=== PATIENT | female | born 1965 | race Two or more races ===

== ENCOUNTER 2020-09-29 08:03 | Outpatient (REF) | payer MEDICAID, SELFPAY ==
--- NOTE | ~2020-09-29 | MM_ITS ---
EXAMINATION: MM SCREENING DIGITAL BREAST TOMOSYNTHESIS, BILATERAL CLINICAL INFORMATION: Screening. Asymptomatic. The lifetime risk of breast cancer based on the Tyrer-Cuzick Model is 6%. COMPARISON: Mammography: 04/16/2018, 08/03/2015, outside exam 07/13/2014 ([place]). TECHNIQUE: Digital breast tomosynthesis is performed in both the craniocaudal and mediolateral oblique views along with computer-aided detection (CAD). Synthesized 2D images are generated from the tomosynthesis. FINDINGS: There are scattered areas of fibroglandular density (ACR BI-RADS breast composition Category b). There are no significant masses, abnormal calcifications, or other abnormalities. Parenchymal pattern is similar to prior exams. No developing density. Skin contours are smooth. No significant changes. MM/MM tomosynthesis screening BI IMPRESSION: No mammographic evidence of malignancy. ASSESSMENT: BI-RADS 1: Negative RECOMMENDATION: Routine annual mammography screening. This patient's information was entered into a reminder system with a target due date for their next mammogram.
== END 2020-09-29 08:04 | disposition home or self-care (01) ==
LOC: HO.MAMMO 08:03
PROVIDERS: PCP Internal Medicine; Visit Provider Internal Medicine
DX: Z12.31 Encounter for screening mammogram for malignant neoplasm of breast (principal)
CPT/HCPCS: 77063; 77067

== ENCOUNTER 2020-12-12 11:42 | Outpatient (REF) | payer MEDICAID, SELFPAY ==
[2020-12-14 16:11] LABS: Transglutaminase Ab IgG <1.0 U/mL; Transglutaminase IgA <1.0 U/mL
== END 2020-12-12 11:43 | disposition home or self-care (01) ==
LOC: HO.LAB 11:42
PROVIDERS: PCP Internal Medicine; Referring Provider Internal Medicine; Visit Provider Nurse Practitioner Family
DX: R10.11 Right upper quadrant pain (principal); R14.0 Abdominal distension (gaseous); K59.04 Chronic idiopathic constipation; K21.9 Gastro-esophageal reflux disease without esophagitis
CPT/HCPCS: 36415; 83516; 99202

== ENCOUNTER 2020-12-13 10:07 | Outpatient (REF) | payer MEDICAID, SELFPAY | END 2020-12-13 10:08 | disposition home or self-care (01) | LOC: HO.LNP 10:07 | PROVIDERS: Visit Provider Nurse Practitioner Family | DX: K21.9 Gastro-esophageal reflux disease without esophagitis (principal) | CPT/HCPCS: 87338 ==

== ENCOUNTER → 2021-01-15 11:46 | Outpatient (BNVA) | payer MEDICAID, SELFPAY | PROVIDERS: PCP Internal Medicine; Referring Provider Internal Medicine; Visit Provider Nurse Practitioner Family | DX: K21.9 Gastro-esophageal reflux disease without esophagitis (principal); K59.04 Chronic idiopathic constipation; K58.1 Irritable bowel syndrome with constipation; R14.0 Abdominal distension (gaseous); R10.9 Unspecified abdominal pain | CPT/HCPCS: 99212 ==

== ENCOUNTER 2021-01-16 08:19 | Outpatient (REF) | payer MEDICAID, SELFPAY ==
[2021-01-16 09:09] LABS: Alanine Aminotransferase 48 U/L (0-31); Albumin Level 4.1 g/dL (3.5-5.0); Alkaline Phosphatase 84 U/L (39-117); Anion Gap 11 (12-20); Aspartate Amino Transferase 29 U/L (5-31); Bilirubin Total 0.4 mg/dL (0.0-1.0); Blood Urea Nitrogen 15 mg/dL (9-16); Calcium 9.6 mg/dL (8.4-10.2); Carbon Dioxide 28 mmol/L (22-29); Chloride 103 mmol/L (96-108); Estimated Glomerular Filt Rate > 60; Glucose Random 102 mg/dL (60-115); Lipase 20 U/L (8-78); Potassium 3.5 mmol/L (3.3-5.1); Sodium 138 mmol/L (135-145); Total Protein 7.1 g/dL (6.5-8.0)
== END 2021-01-16 08:20 | disposition home or self-care (01) ==
LOC: HO.LAB 08:19
PROVIDERS: Visit Provider Nurse Practitioner Family
DX: R19.7 Diarrhea, unspecified (principal)
CPT/HCPCS: 36415; 80053; 83690

== ENCOUNTER 2021-02-23 07:34 | Outpatient (REF) | payer MEDICAID, SELFPAY | END 2021-02-23 07:35 | disposition home or self-care (01) | LOC: HO.HOSX 07:34 | PROVIDERS: Visit Provider Physician Assistant | DX: Z13.89 Encounter for screening for other disorder (principal) ==

== ENCOUNTER 2021-04-16 07:32 | Day surgery (SDC) | payer MEDICAID, SELFPAY ==
[2021-04-10 09:41] VITALS: BMI 32.9
--- NOTE | 2021-04-13 09:04 | P.CONAN_ITS ---
Documented by User: Erika Fu NP 04/13/21 09:06 HPI - Anesthesia Eval Consult details Narrative: 56yo F for Upper Endoscopy [facility] Past Medical History Medical History GERD (gastroesophageal reflux disease) HTN (hypertension) Family History Family History Mother Diabetes Father HTN (hypertension) Surgical History Surgical History History of back surgery History of esophagogastroduodenoscopy (EGD) Hx of breast reduction, elective Hx of colonoscopy Social History Social History Patient Tobacco Use Status: Never used Tobacco Are you DNR?: No Advance Directives: No Advance Directives Information Provided: Yes Advance Directives on File: No Patient : No (post [place]) Meds Allergies Allergy/AdvReac Type Severity Reaction Status Date / Time Penicillins AdvReac Throat Verified 04/10/21 09:41 swelling, facial swelling Home Medications Medication Instructions Recorded Confirmed Last Taken Type losartan 100 1 tab PO DAILY 12/12/20 04/10/21 Unknown History mg-hydrochlorothiazide 25 mg tablet Exam Exam Date and Time: April 13, 2021 0904 Height,Weight and Vital Signs: Height 5 ft 2 in Weight 81.647 kg Pertinent Lab Results Pertinent Lab Results: Laboratory Tests 01/16/21 08:27 Sodium 138 Potassium 3.5 Chloride 103 Carbon Dioxide 28 BUN 15 Creatinine 0.73 Assessment and Plan Assessment Anesthesia Assessment: Chart Reviewed Documented by User: Shayna Winchester MD 04/16/21 08:04 [facility] Past Medical History Medical History GERD (gastroesophageal reflux disease) HTN (hypertension) Family History Family History Mother Diabetes Father HTN (hypertension) Surgical History Surgical History History of back surgery History of esophagogastroduodenoscopy (EGD) Hx of breast reduction, elective Hx of colonoscopy History of Problems with Anesthesia: No Social History Social History Patient Tobacco Use Status: Never used Tobacco Are you DNR?: No Advance Directives: No Advance Directives Information Provided: Yes Advance Directives on File: No Patient : No (post [place]) Meds Allergies Allergy/AdvReac Type Severity Reaction Status Date / Time Penicillins AdvReac Throat Verified 04/10/21 09:41 swelling, facial swelling Home Medications Medication Instructions Recorded Confirmed Last Taken Type losartan 100 1 tab PO DAILY 12/12/20 04/10/21 Unknown History mg-hydrochlorothiazide 25 mg tablet Exam Airway Mallampati Class: II TM Dist: >3cm Neck ROM: Full Loose/Missing/Broken Teeth: No Heart: RRR Lungs: CTA Assessment and Plan Assessment Anesthesia Assessment: Anesthesia Plan Discussed Final Anesthetic Review History of Problems with Anesthesia: No NPO: Yes ASA Class: II Final Preanesthetic Review: Meds/Allgs Chart Reviewed and Consent Obtained/Reviewed Patient Risk: Low Procedure Risk: Intermediate Anesthetic Plan Anesthetic Plan: MAC: Disposition: Standard PACU
[2021-04-16 07:48] VITALS: BP 132/61; PULSE 74; RESP 16; TEMP 36.3; O2SAT 96
[2021-04-16] MEDS: Lactated Ringers 1,000 ML 100 ML IVCONT (07:56)
--- NOTE | 2021-04-16 08:02 | MHC.SHP ---
Pre-Procedural Eval Section A Date of Service: 04/16/21 The patient is an INPATIENT: No The History & Physical has been completed within 30 days and I have reviewed it.: No Section B Chief Complaint: reflux disease Details of Present Illness: GERD, abdominal bloating Relevant Family History (Specify if Yes): No Relevant Social History: None Present Medications: see Short Stay Collaborative assessment Medical History: Significant History (GERD, HYPERTENSION) History of Previous Operations: Relevant previous surgery/procedure and date(s) (History of back surgery Hx of breast reduction, elective Hx of colonoscopy) Allergies: Allergies Allergy/AdvReac Type Severity Reaction Status Date / Time Penicillins AdvReac Throat Verified 04/10/21 09:41 swelling, facial swelling Review of Systems Sugical H&P ROS: Negative: Cardiovascular and Respiratory and Yes, Specify: Constitution (obese) and Gastrointestinal (GERD, abdominal bloating) Exam Surgical H&P Exam: Normal: Heart, Normal: Lungs, Normal: Extremities and Normal: Abdomen Plan Diagnosis/Plan: Unchanged I have reviewed the history and physical and performed a pertinent physical examination on my patient. No changes have occurred unless specified.
--- NOTE | 2021-04-16 08:04 | P.OP_ITS ---
Operative Note Operative Note Date of Service: 04/16/21 Narrative: Pre-op diagnosis: GERD, abdominal bloating Post-op diagnosis:?other (GERD, gastritis) Procedure: FLEXIBLE TRANSORAL UPPER GASTROINTESTINAL ENDOSCOPY WITH BIOPSIES Consent:?Indications for the procedure and potential complications of bleeding, perforation, reaction to medications and missed diagnosis were discussed with the patient and informed consent was obtained. Instrument:?Olympus GIF H 190 mid size upper endoscope Monitoring: Vital signs and clinical assessment, continuous EKG monitoring, Pulse oximetry, Carbon Dioxide monitoring and blood pressure monitoring were done throughout the procedure. Procedure:?The patient was placed in the left lateral decubitis position and pre-procedure medications were administered and a bite block was placed. The endoscope was inserted into the mouth and advanced under direct vision to the third part of duodenum. A careful inspection was made as the upper endoscope was withdrawn including a retroflexed examination of the proximal stomach; Findings and interventions are described below. Findings: Larynx:? Normal Esophagus: GE junction at 36 cms. No esophagitis or Contreras's. Stomach: Mild gastric erythema. Biopsies were obtained. Grade 2 flap valve on retroflexed examination of the cardia. Duodenum: Normal bulb and descending duodenum. Biopsies were obtained from 3rd part of the duodenum to check for celiac sprue Intervention: Biopsies as noted above Impression and Post Procedure Diagnosis: Endoscopy Findings: STOMACH: Mild antral gastritis DUODENUM: Normal - biopsied to check for celiac sprue Plan: Await pathology results Patient has an appointment on 05/01/21 in the GI Clinic with ? Jennifer Medina FNP-BC . Above findings were reviewed with the patient and GERD handout was given in the discharge area Surgeon: Flash Alexander MD Anesthesia:?MAC (Dr Winchester) Was an Voting Machine Mechanic used for this Procedure?:?No Voting Machine Mechanic:?Noa Kumar Estimated blood loss (mL):?0 Pathology:?other (A. small bowel bxs, R/O celiac? B. gastric antrum, R/O H. pylori) Condition:?stable Disposition:?PACU
[2021-04-16 08:48] VITALS: BP 103/45; PULSE 71; RESP 20; TEMP 36.2; O2SAT 98
[2021-04-16 09:05] VITALS: BP 119/63; PULSE 71; RESP 18; TEMP 36.2; O2SAT 96
== END 2021-04-16 09:34 ==
LOC: HO.SSS 07:32
PROVIDERS: PCP Internal Medicine; Visit Provider Internal Medicine Gastroenterology
PROC: 0DJ08ZZ Inspection of Upper Intestinal Tract, Via Natural or Artificial Opening Endoscopic (ICD-10-PCS; CPT 43235; principal; 2021-04-16 08:30)
DX: K21.9 Gastro-esophageal reflux disease without esophagitis (principal); K29.50 Unspecified chronic gastritis without bleeding; K58.1 Irritable bowel syndrome with constipation; I10 Essential (primary) hypertension; Z79.899 Other long term (current) drug therapy; Z88.0 Allergy status to penicillin
CPT/HCPCS: 43239; 88305; 88342

== ENCOUNTER 2021-05-01 09:05 | Outpatient (REF) | payer MEDICAID, SELFPAY ==
[2021-05-01 12:09] LABS: Alanine Aminotransferase 48 U/L (0-31); Alkaline Phosphatase 92 U/L (39-117); Anion Gap 12 (12-20); Aspartate Amino Transferase 33 U/L (5-31); Bilirubin Total 0.4 mg/dL (0.0-1.0); Blood Urea Nitrogen 15 mg/dL (9-16); Calcium 9.8 mg/dL (8.4-10.2); Carbon Dioxide 28 mmol/L (22-29); Chloride 101 mmol/L (96-108); Estimated Glomerular Filt Rate > 60; Glucose Random 95 mg/dL (60-115); Lipase 19 U/L (8-78); Potassium 3.7 mmol/L (3.3-5.1); Sodium 137 mmol/L (135-145); Total Protein 7.2 g/dL (6.5-8.0)
[2021-05-01 12:31] LABS: TSH reflex Free T4 0.77 uIU/mL (0.32-4.0)
[2021-05-01 12:34] LABS: Folate 10.7 ng/mL (> or = 4.0); Vitamin B12 482 pg/mL (200-900)
[2021-05-05 14:07] LABS: Vitamin D 25-OH, D2 <4 ng/mL; Vitamin D 25-OH, D3 30 ng/mL; Vitamin D 25-OH, Total 30 ng/mL (30-100)
== END 2021-05-01 09:06 | disposition home or self-care (01) ==
LOC: HO.LAB 09:05
PROVIDERS: PCP Internal Medicine; Referring Provider Internal Medicine; Visit Provider Nurse Practitioner Family
DX: R10.10 Upper abdominal pain, unspecified (principal); K59.04 Chronic idiopathic constipation; K21.9 Gastro-esophageal reflux disease without esophagitis; K58.1 Irritable bowel syndrome with constipation; R14.0 Abdominal distension (gaseous); R19.7 Diarrhea, unspecified; E55.9 Vitamin D deficiency, unspecified
CPT/HCPCS: 36415; 80053; 82306; 82607; 82746; 83690; 84443; 99212

== ENCOUNTER 2021-10-11 09:12 | Outpatient (REF) | payer MEDICAID, SELFPAY ==
--- NOTE | ~2021-10-11 | MM_ITS ---
EXAMINATION: MM SCREENING DIGITAL BREAST TOMOSYNTHESIS, BILATERAL CLINICAL INFORMATION: Screening. Asymptomatic. The lifetime risk of breast cancer based on the Tyrer-Cuzick Model is 6%. COMPARISON: Mammography: 09/29/2020 and studies dating back to 07/13/2014. TECHNIQUE: Digital breast tomosynthesis is performed in both the craniocaudal and mediolateral oblique views along with computer-aided detection (CAD). Synthesized 2D images are generated from the tomosynthesis. FINDINGS: The breasts are heterogeneously dense, which may obscure small masses (ACR BI-RADS breast composition Category c). There is a stable parenchymal pattern of the right breast. Within the central aspect of the left breast, there are some indeterminate calcifications which on one view may represent calcifications around a fibroadenoma. However, on the other image this appearance is not present. Recommend spot magnification views in 90 degree mediolateral view and craniocaudal views. MM/MM tomosynthesis screening BI IMPRESSION: Probably benign calcification but which recommend spot magnification views for better evaluation. ASSESSMENT: BI-RADS 0: Incomplete - Need Additional Imaging Evaluation RECOMMENDATION: 1. Additional views of the left breast. 2. Targeted ultrasound if warranted after review of the additional views. 3. Radiology department staff will contact the patient for additional imaging.
== END 2021-10-11 09:13 | disposition home or self-care (01) ==
LOC: HO.MAMMO 09:12
PROVIDERS: PCP Internal Medicine; Visit Provider Internal Medicine
DX: Z12.31 Encounter for screening mammogram for malignant neoplasm of breast (principal)
CPT/HCPCS: 77063; 77067

== ENCOUNTER 2021-10-16 09:03 | Outpatient (REF) | payer MEDICAID, SELFPAY ==
--- NOTE | ~2021-10-16 | MM_ITS ---
EXAMINATION: MM DIAGNOSTIC DIGITAL MAMMOGRAPHY, LEFT CLINICAL INFORMATION: Recall from screening for calcifications central left breast. Prior history reduction mammoplasty approximately 9 years ago. TC score 6%. COMPARISON: Mammography: 10/11/2021, 09/29/2020, 04/16/2018 TECHNIQUE: Digital mammography is performed in the following views: Magnification CC, magnification ML FINDINGS: The breasts are heterogeneously dense, which may obscure small masses (ACR BI-RADS breast composition Category c). Additional views demonstrate tightly grouped relatively coarse calcifications. As noted on the screening exam, they are circumferential arranged on the CC view. They are probably benign and will be reassessed again in 6 months. Results are discussed with the patient at time of visit. MM/MM added views LT IMPRESSION: Tightly grouped relatively coarse probable benign calcifications central left breast. ASSESSMENT: BI-RADS 3: Probably Benign RECOMMENDATION: Diagnostic left mammography in 6 months. This patient's information was entered into a reminder system with a target due date for their next mammogram.
== END 2021-10-16 09:04 | disposition home or self-care (01) ==
LOC: HO.MAMMO 09:03
PROVIDERS: PCP Internal Medicine; Visit Provider Internal Medicine
DX: R92.1 Mammographic calcification found on diagnostic imaging of breast (principal)
CPT/HCPCS: 77065

== ENCOUNTER 2022-05-15 12:58 | Outpatient (REF) | payer MEDICAID, SELFPAY ==
--- NOTE | ~2022-05-15 | MM_ITS ---
EXAMINATION: MM DIAGNOSTIC DIGITAL BREAST TOMOSYNTHESIS, LEFT CLINICAL INFORMATION: Six-month followup left breast calcifications. COMPARISON: Mammography: 10/16/2021 and studies dating back to 07/11/2014. TECHNIQUE: Digital breast tomosynthesis is performed in both the craniocaudal and mediolateral oblique views along with computer-aided detection (CAD). Synthesized 2D images are generated from the tomosynthesis. Additional spot magnification views in craniocaudal and 90-degree mediolateral views performed. FINDINGS: The breasts are heterogeneously dense, which may obscure small masses (ACR BI-RADS breast composition Category c). There are no new significant masses, abnormal calcifications, or other abnormalities. The left breast calcifications about the central aspect appear stable. Recommend 6-month followup bilateral mammography with magnification views of the left breast. Results are provided to the patient at time of visit by the technologist. MM/MM tomosynthesis diagnostic LT IMPRESSION: There are no significant changes from prior study. ASSESSMENT: BI-RADS 3: Probably benign. RECOMMENDATION: Diagnostic mammography in 6 months. This patient's information was entered into a reminder system with a target due date for their next mammogram.
== END 2022-05-15 12:59 | disposition home or self-care (01) ==
LOC: HO.MAMMO 12:58
PROVIDERS: PCP Internal Medicine; Visit Provider Internal Medicine
DX: R92.1 Mammographic calcification found on diagnostic imaging of breast (principal)
CPT/HCPCS: 77061; 77065

== ENCOUNTER → 2022-11-15 09:52 | Outpatient (BNVA) | payer MEDICAID, SELFPAY | PROVIDERS: PCP Internal Medicine; Visit Provider Physician Assistant Surgical ==

== ENCOUNTER 2022-11-28 09:38 | Outpatient (AMB) | payer MEDICAID, SELFPAY ==
[2022-11-28 09:50] VITALS: BP 150/79; PULSE 78; TEMP 36.1; O2SAT 96; BMI 35.9
--- NOTE | 2022-11-28 09:50 | MHC.OFFVISWM ---
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 She heard about our program from a friend. Her goal is to lose weight and achieve a healthy lifestyle as well as to improve, if not resolve, obesity related medical conditions, including htn. She reports first being concerned about her weight about a year ago given increase in back pain, highest weight to date was 220. Current weight is 209.2 pounds with a BMI of 35.9. She has tried multiple methods of weight loss including fad diets and exercise without permanent results. She lives with her grandson. She does not work. She wakes at:?5 am, and goes to bed at?9 pm. Dinner is at 3 pm and then again at 6 pm. Breakfast: oatmeal or pancakes or eggs, or DD Bagel twist AM snack: toast Lunch: cereal (cinnamon toast crunch w 1 % milk) PM snack: fruit Dinner: rice beans pork, pasta, soup After dinner: crackers Other snacks: donuts, crackers Liquids: 64-80 oz water, no soda, no juice, 3 hot tea per day Alcohol/marijuana/tobacco intake: none Exercise: can join [facility] GERD score: 18 KEERTHI score: 0 ESS score: 4 QOL score: 118 [facility] Medical History HTN (hypertension) GERD (gastroesophageal reflux disease) Surgical History History of esophagogastroduodenoscopy (EGD) Hx of breast reduction, elective History of back surgery Hx of colonoscopy Family History Mother Diabetes Father HTN (hypertension) Daughter No problems noted. Daughter No problems noted. Social History Alcohol intake: never Patient Tobacco Use Status: Never used Tobacco Review of Systems Const All systems reviewed & are unremarkable except as noted in HPI and below Physical Exam Vital Signs: Last Vital Signs Temp 97.0 F 11/28/22 09:50 Pulse 78 11/28/22 09:50 BP 150/79 H 11/28/22 09:50 Pulse Ox 96 11/28/22 09:50 Oxygen Delivery Method Room Air 11/28/22 09:50 BMI result Body Mass Index 35.9 Const General: cooperative, healthy appearing and no acute distress Orientation/consciousness: patient oriented x3 HEENT Head: Yes normal to inspection Ears: hearing grossly normal bilaterally General nose exam: Normal external nose present Face and sinus: Yes normal facial exam Eyes General: appearance normal, both eyes and all related structures Resp Effort & Inspection: normal respiratory effort Auscultation: clear to auscultation bilaterally Cardio Rate: regular rate Rhythm: regular rhythm Heart sounds: S1 normal heart sound present and S2 normal heart sound present GI Inspection: Yes normal to inspection, No distended and Yes obesity Palpation (GI): Soft to palpation, nontender and no guarding Auscultation: normal bowel sounds Skin General skin exam: no rashes or lesions noted Neuro General: patient oriented x3 Extrem General: Yes edema (trace BLE) Psych Appearance: grossly normal Mental Status: mental status grossly normal Speech and movement: Normal speech and movement present Affect: normal affect Attitude: cooperative Assessment & Plan Assessment & Plan (1) Obesity (BMI 30-39.9): Code(s): E66.9 - Obesity, unspecified Plan: This is a?57 yo female who will start our SW program to prepare for bariatric surgery.? Blood work, h pylori , CXR, ECG, Abd US and UGI have been ordered. She is being scheduled for RD and BH initial consultations. She will start SWL classes and watch the first three videos before her next appointment. ? Adequate sleep of 7-8 hours per night discussed, awakening at 5 am and going to bed around 9 pm ? Purchase body composition analyzer scale (William taylor or Agueda recommended) and check weight weekly. The best time to do this is first thing in the morning after going to the bathroom. 1. Nutritional counseling: Be sure to careful read the number of scoops per shake Start with 2 Celebrate Rebuild shakes ([facility] [employer], [employer], [employer]) First shake (1 scoop in 10 oz low fat unsweetened almond milk) at 6am-8am Second shake (1 and 1/2 scoops in 12 oz low fat unsweetened almond milk) 9am-11pm Meal at 1-2pm (7 forks of protein and 7 forks of salad/vegetables). Meal to include lean meat (beef, fish, pork, turkey, chicken), cooked vegetables or a salad with olive oil and/or fruits (berries, pears, apples, kiwi). Avoid salt, breads, potatoes, rice, pasta, desserts. 2 protein bars ([employer] bars at [facility] [employer], [employer], [employer]) at 3pm-5pm. Another bar at 6pm-8pm. Try to drink 64 oz of water daily and avoid soda and juices. ?2. Each shake would be drunk slowly, like coffee in a period of 2 hours. ?3. Cut each bar in 4 pieces and eat each piece in 30 min ?to make each bar last 2 hours. ?4. I emphasized the importance of measuring accurately the food portion and measure it carefully when serving the food on the plate ?5. The meal portions include 7 full-size forks of meat and 7 full-size forks of salad. You always eat the meat portion but you can replace up to half of the forks of salad/vegetables with rice, potatoes or pasta, or a fruit ?if you like. The less you do it the better weight loss will be. ?6. One full-size fork is what can be scooped on the fork without falling aside and not what can be bit with the fork. Use regular forks like those you find in a typical restaurant. ?7.? Please send me weight measurements as soon as possible and then once a week. Always include your diet and exercise plan. Alternatively come weekly at the office for weight checks and send me the measurements. ?8. Exercise counseling: Begin by watching a stretching for beginners video. Start slowly and begin to stretch your muscles. You should do this before and after each exercise session to prevent injury. Please join [facility] gym near your home. Ask the retail property manager or one of the trainers how to use the machines if you are unfamiliar with them. Start elliptical with a resistance of 0. Increase resistance by 1 every 3 min to your most comfortable resistance with a max resistance of 6. Reduce the resistance by 1 every 3 minutes back down to 0 and repeat cycles for 300 calories. Alternatively, start treadmill with a speed of 2.5 and incline of 0, increasing incline by 1 every 3 minutes to the highest comfortable level (max 4 for now) then decrease in the same fashion. Repeat process to a goal of 300 calories. Goal of 2000 calories burned or more weekly. You may also consider use of the stationary bike. The easiest would be to chose the fat-burn or interval training program on the machine and do this until you reach the 300 calorie goal. Alternatively, you can manually adjust the resistance in a similar fashion as mentioned above, (resistance of 2-8 with a goal speed of 12 mph). Tracking calories is essential. 9. Alternatively start walking outside daily, tracking calories with a goal of 300 calories per day, daily. You can download the pooja Fanvibe which can track your time, distance and calories while walking outside. You press start in the pooja when you start and then stop when you are finished. 10.? It is important to avoid for at least 18 months postoperatively and it has been discussed at the information session 11. Please get labs, EKG and chest X-Ray within 1 week. 12. Discussed and answered all questions regarding?obtained consent to participate in the [facility]?Registry. 13. Please follow the diet plan exactly, without any change. If you do not like something about the plan or you feel hungry, you need to communicate with me so I can help you revise the plan. You should not change the plan yourself. Text me at [phone] 14. Goal is to lose at least 12 pounds in the first month 15. Goal is to lose 10% of your weight before surgery, which is about 20 lbs. Ultimate weight goal: 189 lbs before surgery Patient is morbidly obese and is not considered stable at this time.?I spent a total of 70 minutes reviewing/updating records, examining the patient and counseling the patient on weight management as detailed above. Orders: Orders Lipid Panel Today E66.9 - Obesity, unspecified, I10 - Essential (primary) hypertension Complete Blood Count Auto Diff Today E66.9 - Obesity, unspecified, I10 - Essential (primary) hypertension Comprehensive Met. Panel Today E66.9 - Obesity, unspecified, I10 - Essential (primary) hypertension Vitamin B1 Today E66.9 - Obesity, unspecified, I10 - Essential (primary) hypertension Vitamin A Today E66.9 - Obesity, unspecified, I10 - Essential (primary) hypertension TSH reflex Free T4 Today E66.9 - Obesity, unspecified, I10 - Essential (primary) hypertension H Pylori Breath Test Today E66.9 - Obesity, unspecified, I10 - Essential (primary) hypertension Vitamin D 25-OH Total Today E66.9 - Obesity, unspecified, I10 - Essential (primary) hypertension Hemoglobin A1c Today E66.9 - Obesity, unspecified, I10 - Essential (primary) hypertension US abdomen comp w elastography Today E66.9 - Obesity, unspecified, I10 - Essential (primary) hypertension ECG 12 lead EKG Today E66.9 - Obesity, unspecified, I10 - Essential (primary) hypertension FL upper GI w air Today E66.9 - Obesity, unspecified, I10 - Essential (primary) hypertension Insulin Today E66.9 - Obesity, unspecified, I10 - Essential (primary) hypertension IRON PROFILE Today E66.9 - Obesity, unspecified, I10 - Essential (primary) hypertension Vitamin B12 and Folate Today E66.9 - Obesity, unspecified, I10 - Essential (primary) hypertension Zinc Today E66.9 - Obesity, unspecified, I10 - Essential (primary) hypertension C Reactive Protein Today E66.9 - Obesity, unspecified, I10 - Essential (primary) hypertension Ferritin Today E66.9 - Obesity, unspecified, I10 - Essential (primary) hypertension PTHI Today E66.9 - Obesity, unspecified, I10 - Essential (primary) hypertension XR chest 2V Today E66.9 - Obesity, unspecified, I10 - Essential (primary) hypertension Referrals Behavioral Health Referral E66.9 - Obesity, unspecified, I10 - Essential (primary) hypertension Nutrition/Dietitian Referral E66.9 - Obesity, unspecified, I10 - Essential (primary) hypertension Coding Level of Care Code New Pt Level 5 (19784) Diagnoses Obesity (BMI 30-39.9) E66.9 Time Spent (min) 70
== END 2022-11-28 11:06 | disposition home or self-care (01) ==
PROVIDERS: PCP Internal Medicine; Visit Provider Physician Assistant Surgical
DX: E66.9 Obesity, unspecified (principal); Z68.35 Body mass index [BMI] 35.0-35.9, adult
CPT/HCPCS: 99205

== ENCOUNTER → 2022-11-28 09:38 | Outpatient (BNVA) | payer MEDICAID, SELFPAY | PROVIDERS: PCP Internal Medicine; Visit Provider Physician Assistant Surgical | DX: E66.9 Obesity, unspecified (principal); Z68.35 Body mass index [BMI] 35.0-35.9, adult; I10 Essential (primary) hypertension | CPT/HCPCS: 99212 ==

== ENCOUNTER 2022-12-11 09:49 | Outpatient (REF) | payer MEDICAID, SELFPAY ==
--- NOTE | ~2022-12-11 | XR_ITS ---
EXAMINATION: XR CHEST 2 VIEWS CLINICAL INFORMATION: Cough. COMPARISON: None. TECHNIQUE: Frontal and lateral views of the chest were obtained. FINDINGS: The heart, great vessels, pulmonary vasculature and mediastinum are normal. The lungs show no focal infiltrate, effusion or pneumothorax. There is no acute osseous abnormality. There is multi-level mild thoracic spondylosis. XR/XR chest 2V IMPRESSION: No active cardiopulmonary disease.
--- NOTE | 2022-12-11 09:53 | ECG_ITS ---
Test Reason : OBESITY Blood Pressure : / mmHG Vent. Rate : 079 BPM Atrial Rate : 079 BPM P-R Int : 174 ms QRS Dur : 072 ms QT Int : 360 ms P-R-T Axes : 069 029 043 degrees QTc Int : 412 ms Normal sinus rhythm Normal ECG No previous ECGs available Referred By: José Manuel Almodovar Electronically Signed By:NATHALY THRASHER MD
[2022-12-11 10:16] LABS: MANUAL DIFF FLAG NO
[2022-12-11 10:40] LABS: Basophils Percent Auto 0.5 % (0-2); Eosinophils Absolute Auto 0.2 X10*3/uL (0.0-0.4); Eosinophils Percent Auto 2.2 % (0-4); Hematocrit 42.4 % (37.0-47.0); Hemoglobin 13.4 g/dl (12.0-16.0); Imm Gran Abs Auto 0.03 X10*3/uL (0.00-0.03); Imm Gran Pct Auto 0.4 % (0.0-0.4); Lymphocytes Absolute Auto 2.7 X10*3/uL (1.2-4.9); Lymphocytes Percent Auto 35.6 % (20-40); Mean Corpuscular HGB Conc 31.6 g/dl (31.0-35.0); Mean Corpuscular Hemoglobin 26.8 pg (27.0-33.0); Mean Corpuscular Volume 84.8 fL (80.0-98.0); Mean Platelet Volume 12.3 fL (9.4-12.3); Monocytes Absolute Auto 0.7 X10*3/uL (0.1-1.2); Monocytes Percent Auto 9.4 % (2-11); Neutrophils Absolute Auto 3.9 x10*3/uL (2.0-8.3); Neutrophils Percent Auto 51.9 % (45-73); Platelet Count 209 X10*3/uL (160-400); Red Cell Distribution Width 13.2 % (11.0-16.0); White Blood Count 7.6 X10*3/uL (4.8-10.8)
[2022-12-11 10:53] LABS: Estimated Average Glucose 108 mg/dL; Hemoglobin A1c % 5.4 % (<6.0)
[2022-12-11 11:19] LABS: Alanine Aminotransferase 66 U/L (0-31); Alkaline Phosphatase 76 U/L (39-117); Anion Gap 14 (12-20); Aspartate Amino Transferase 43 U/L (5-31); Bilirubin Total 0.5 mg/dL (0.0-1.0); Blood Urea Nitrogen 15 mg/dL (9-16); C Reactive Protein 2.61 mg/dL (< or = 0.50); Calcium 9.8 mg/dL (8.4-10.2); Carbon Dioxide 28 mmol/L (22-29); Chloride 101 mmol/L (96-108); Cholesterol 150 mg/dL (<200); Estimated Glomerular Filt Rate > 60; Glucose Random 100 mg/dL (60-115); HDL Cholesterol 40 mg/dL (>40); Iron 79 mcg/dL (30-160); LDL Cholesterol Calculated 90 mg/dL (<100); Percent Iron Saturation 24 % (15-50); Potassium 3.5 mmol/L (3.3-5.1); Sodium 139 mmol/L (135-145); Total Iron Binding Capacity 334 mcg/dL (228-428); Total Protein 7.2 g/dL (6.5-8.0); Triglycerides 104 mg/dL (<150); Unsaturated Iron Binding 255 ug/dL
[2022-12-11 11:39] LABS: Ferritin 126 ng/mL (10-250); Insulin 23 uU/mL (2-29); Vitamin D 25-OH Total 56.4 ng/mL (>30)
[2022-12-11 11:49] LABS: Folate 16.4 ng/mL (> or = 4.0); Vitamin B12 973 pg/mL (200-900)
[2022-12-12 14:39] LABS: Calcium (PTHI) 9.4 mg/dL (8.6-10.4); PTHI 42 pg/mL (16-77)
[2022-12-14 01:54] LABS: Zinc 62 mcg/dL (60-130)
[2022-12-15 14:14] LABS: Vitamin B1 34 nmol/L (8-30)
[2022-12-17 15:03] LABS: Vitamin A 33 mcg/dL (38-98)
== END 2022-12-11 09:50 | disposition home or self-care (01) ==
LOC: HO.XRAY 09:49
PROVIDERS: PCP Internal Medicine; Visit Provider Physician Assistant Surgical
DX: E66.9 Obesity, unspecified (principal); I10 Essential (primary) hypertension; R05.9 Cough, unspecified
CPT/HCPCS: 36415; 71046; 80053; 80061; 82306; 82607; 82728; 82746; 83036; 83525; 83540; 83970; 84425; 84443; 84590; 84630; 85025; 86140; 93005

== ENCOUNTER 2022-12-26 11:00 | Outpatient (AMB) | payer OTHER, SELFPAY ==
--- NOTE | 2022-12-26 11:08 | A.OFFWM_ITS ---
Intake Intake Visit Reasons: VIDEO Intake Allergies Penicillins Adverse Reaction (Verified 11/28/22 10:06) Throat swelling, facial swelling PFSH Medical History HTN (hypertension) GERD (gastroesophageal reflux disease) Surgical History History of esophagogastroduodenoscopy (EGD) Hx of breast reduction, elective History of back surgery Hx of colonoscopy Family History Mother Diabetes Father HTN (hypertension) Daughter No problems noted. Daughter No problems noted. Social History Alcohol intake: never Patient Tobacco Use Status: Never used Tobacco Behavioral Health Assessment Weight Management Therapy Therapy Notes Details PT is a 57 year old female, who presents for assessment as part of [facility] program. PT currently attends counseling on a monthly basis and sees prescriber every 3 months. States she's diagnosed with depression and anxiety, also shared that her anxiety is related to pain illness. Pt denies any safety concern and/or any history/current issue with self-harm/other-harm. PHQ-9 scores indicate possible active Sx of depression, BES scores suggest lower risk for binge eating but, pt shared concerns with stress-eating. We will meet again to finish part of the assessment, to monitor adjustment to program expectations and provide strategies for stress-eating. Presenting Concerns Referral Source WMP Provider Reason for referral Completion of behavioral health assessment as part of process for weight-loss surgery. Precipitating Event Obesity. Living Situation Current Living Situation Rent At risk of losing current housing? No Satisfied with current living situation? Yes Comments Pt lives with 12 y/o grandson. Food/Weight/Diet Expectations of change Goal is to lose 10% of her weight before surgery, which is about 20 lbs. Ultimate weight goal: 189 Lbs before surgery. PT wants to achieve a healthy weight. History/Relationship with food PT reports she likes bread, tends to skip meals and/or not have formal meals then she was eating and picking here and there. PT reports challenges with stress eating, and having a hard time calming her cravings. She feels the need to put something on her mouth when craving sweets. . Example of meals before starting program Breakfast: @7:30am Oatmeal, sandwich, or a fast breakfast from [employer]. Lunch: @12pm. [place], cereal/milk. PM snack: chips, donuts, anything available. Meal at @3pm and then another meal at @6pm, but not a formal dinner. It was something quick. History/Relationship with weight Always been overweight. in past 5 years lowest weight has been 200Lbs, highest weight 217Lbs. PT reports she notices more challenges losing weight after she moved and was walking less. Social History Family history and relationship Pt is . She has 2 adult daughters (34 and 33 y/o). Has 6 grandchildren. Both parents are . Has 5 siblings. Pt reports good family relationships. 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 Developmental history and status None reported. Social support Daughters, siblings, niece. Community support Providers. Yazidi/Spirituality [employer]. Cultural/Ethnic information [place]. Pt lives in the [facility] [place] years ago. Been in [place] for about 24 years. Legal Involvement and History Current or historical involvement with the legal system? None reported Education Highest grade completed 9th grade. Preferred learning style Learn by doing and Visual Currently enrolled in educational program? No Interested in further educational program? No Educational Interests/Skills Plants, care of others. Employment Employment Status Unemployed Wants help to find employment? No Meaningful activities shopping, cleaning, plants, family activities, be at her home. Financial Situation Describe current financial situation Comfortable Financial assistance? [place], TAFDC ([place] for grandson.) and Disability (for herself.) Service Service? No Mental Health and Addiction Treatment Current/Past substance abuse? No Current/Past addictive behavior concerns? No Psychiatric history PT attends counseling at [facility] on a monthly basis, sees prescriber every 3 months. Therapist: Loi Roche. Psychiatrist: Dr. Hawkins. She is diagnosed with Depression, anxiety, emotional issues due to pain. Current medication: Prozac 20mg, Melatonin 10mg 1 at bedtime as needed. PT was in crisis over 15 years ago after having anxiety attacks. Pt denies any safety concern and/or any history/current issue with se;f-harm/other-harm. Medical and Physical Health Summary Additional Medical History not covered in history None reported Sexual History concerns None reported Physical exam in the last year? Yes Pain Screening Current pain? Yes Pain in the last few months? Yes Comments Back pain and shoulder pain due to arthritis and tendonitis. Medications Is the patient compliant with medications? Yes Does the patient have García Guardian in place? Not applicable Does the patient use complimentary health approaches? No Trauma/Abuse History History of trauma? No Questionnaires PHQ-9 Over the last 2 weeks, how often have you been bothered by any of the following problems? 1. Little interest or pleasure in doing things: several days 2. Feeling down, depressed, or hopeless: not at all 3. Trouble falling or staying asleep, or sleeping too much: more than half the days 4. Feeling tired or having little energy: several days 5. Poor appetite or overeating: more than half the days 6. Feeling bad about yourself - or that you are a failure or have let yourself or your family down: several days 7. Trouble concentrating on things, such as reading the newspaper or watching television: several days 8. Moving or speaking so slowly that other people could have noticed. Or the opposite - being so fidgety or restless that you have been moving around a lot more than usual: several days 9. Thoughts that you would be better off or of hurting yourself in some way: not at all Total score: 9 Depression Screening Interpretation: Positive Depression Screening Follow-up: Existing condition and Other (Repeat next visit.) Depression Screening Done: Yes 45807 - PHQ-9 Billing: Yes Source: Developed by Drs. Baljit Sivla, Elena Boyd, Yuriy Ace and colleagues, with an educational shy from [employer]. Binge Eating Scale Group 1 A. I don't feel self-conscious about my wt. or body size when I'm with others. B. I feel concerned about how I look to others, but it normally does not make me fell disappointed with myself C. I do get self-conscious about my appearance and wt. which makes me feel disappointed in myself. D. I feel very self-conscious about my wt. and frequently I feel intense shame and disgust for myself. I try to avoid social contacts because of my self- consciousness. Response Group 1: B Group 2 A. I don't have any difficulty eating slowly in the proper manner. B. Although I seem to gobble down foods, I don't end up feeling stuffed because of eating to much. C. At times, I tend to eat quickly and then, I feel uncomfortably full afterwards. D. I have the habit of bolting down my food, without really chewing it. When this happens I usually feel uncomfortably stuffed because I've eaten to much. Response Group 2: B Group 3 A. I feel capable to control my eating urges when I want to. B. I feel like I have failed to control my eating more than the average person. C. I feel utterly helpless when it comes to feeling in control of my eating urges. D. Because I feel so helpless about controlling my eating I have become very desperate about trying to get control. Response Group 3: A Group 4 A. I don't have the habit of eating when I'm bored. B. I sometimes eat when I'm bored, but often I'm able to get busy and get my mind off food. C. I have a regular habit of eating when I'm bored, but occasionally, I can use some other activity to get my mind off eating. D. I have a strong habit of eating when I'm bored. Nothing seems to help me breath the habit. Response Group 4: B Group 5 A. I'm usually physically hungry when I eat something. B. Occasionally, I eat something on impulse even though I really am not hungry. C. I have the regular habit of eating foods, that I might not really enjoy, to satisfy a hungry feeling even though physically, I don't need the food. D. Although I'm not physically hungry, I get a hungry feeling in my mouth that only seems to be satisfied when I eat a food, like sandwich, that fills my mouth. Sometimes, when I eat the food to satisfy my mouth hunger, I then spit the food out so I won't gain weight. Response Group 5: D Group 6 A. I don't feel any guilt or self-hate after I overeat. B. After I overeat, occasionally I feel guilt or self-hate. C. Almost all the time I experience strong guilt or self-hate after I overeat. Response Group 6: A Group 7 A. I don't lose total control of my eating when dieting even after periods when I overeat. B. Sometimes when I eat a forbidden food on a diet, I feel like I blew it and eat even more. C. Frequently, I have the habit of saying to myself, I've blown it now, why not go all the way, when I overeat on a diet. When that happens I eat more. D. I have a regular habit of starting a strict diets for myself but I break the diets by going on an eating binge. My life seems to be either a feast or famine. Response Group 7: B Group 8 A. I rarely eat so much food that I feel uncomfortably stuffed afterwards. B. Usually about once a month, I each such a quantity of food, I end up feeling very stuffed. C. I have regular periods during the month when I eat large amounts of food, either at mealtime or at snacks. D. I eat so much food that I regularly feel quite uncomfortable after eating and sometimes a bit nauseous. Response Group 8: B Group 9 A. My level of calorie intake does not go up very high or go down very low on a regular basis. B. Sometimes after I overeat, I will try to reduce my caloric intake to almost nothing to compensate for the excess calories I've eaten. C. I have a regular habit of overeating during the night. It seems that my routine is not to be hungry in the morning but overeat in the evening. D. In my adult years, I have had week-long periods where I practically starve myself. This follows periods when I overeat. It seems I live a life of either feast or famine. Response Group 9: B Group 10 A. I usually am able to stop eating when I want to. I know when enough is enough. B. Every so often, I experience a compulsion to eat which I can't seem to control. C. Frequently, I experience strong urges to eat which I seem unable to control, but at other times I can control my eating urges. D. I feel incapable of controlling urges to eat. I have a fear of not being able to stop eating voluntarily. Response Group 10: A Group 11 A. I don't have any problem stopping eating when I feel full. B. I usually can stop eating when I feel full but occasionally overeat leaving me feeling uncomfortably stuffed. C. I have a problem stopping eating once I start and usually I feel uncomfortably stuffed after I eat a meal. D. Because I have a problem not being able to stop eating when I want, I sometimes have to induce vomiting to relieve my stuffed feeling. Response Group 11: C Group 12 A. I seem to eat just as much when I'm with others, Family social gatherings as when I'm by myself. B. Sometimes, when I'm with other persons, I don't eat as much as I want to eat because I'm self-conscious about my eating. C. Frequently, I eat only a small amount of food when others are present, b ecause I'm very embarrassed about my eating. D. I feel so ashamed about overeating that I pick times to overeat when I know no one will see me. I feel like a closet eater. Response Group 12: B Group 13 A. I eat three meals a day with only an occasional between meal snack. B. I eat 3 meals a day, but I also normally snack between meals. C. When I am snacking heavily, I get in the habit of skipping regular meals. D. There are regular periods when I seem to be continually eating, with no planned meals. Response Group 13: C Group 14 A. I don't think much about trying to control unwanted eating urges. B. At least some of the time, I feel my thoughts are pre-occupied with trying to control my eating urges. C. I feel that frequently I spend much time thinking about how much I ate or about trying not to eat anymore. D. It seems to me that most of my waking hours are pre-occupied by thoughts about eating or not eating. I feel like I'm constantly struggling not to eat. Response Group 14: B Group 15 A. I don't think about food a great deal. B. I have strong craving for food but they last only for brief periods of time. C. I have days when I can't seem to think about anything else but food. D. Most of my days seem to be pre-occupied with thoughts about food. I feel like I live to eat. Response Group 15: D Group 16 A. I usually know whether or not I'm physically hungry. I take the right portion of food to satisfy me. B. Occasionally, I feel uncertain about knowing whether or not I'm physically hungry. A these times it's hard to know how much food I should take to satisfy me. C. Even though I might know how many calories I should eat, I don't have any idea what is a normal amount of food for me. Response Group 16: B Binge Eating Score: 19 Score less than 17 Minimal Risk Score between 18-26 Moderate Risk Score between 27-46 High Risk Assessment & Plan Assessment & Plan (1) Depression: Code(s): F32.A - Depression, unspecified Qualifiers: Depression Type: major depressive disorder Major depression episode severity: unspecified Major depression recurrence: recurrent (2) Eating disorder, unspecified: Code(s): F50.9 - Eating disorder, unspecified Qualifiers: Eating disorder type: unspecified eating disorder Qualified Code(s): F50.9 - Eating disorder, unspecified Plan PT not cleared today. PT will need support with habit building and emotional eating. Follow up on 01/27/2023 at 9:45am. -Advised client to communicate with provider her challenges with shakes and for support as she's not following meal plan as indicated. Telehealth Telehealth Location of provider rendering services: other Location of patient: address on file Patient Identification confirmed using: Name, : Yes Telehealth method: video Patient verbally consented to treatment: Yes Patient verbally consented to billing insurance company: Yes Patient informed of any privacy concerns related to visit: No Minutes spent on Phone/Video with Pt.: 60 Coding Level of Care Code New Pt Tele Psy Diag Eval (10388) Patient Type New Diagnoses Depression F32.A Depression Type: major depressive disorder Major depression episode severity: unspecified Major depression recurrence: recurrent Eating disorder, unspecified type F50.9 Eating disorder type: unspecified eating disorder Time Spent (min) 60
== END 2022-12-26 11:30 | disposition home or self-care (01) ==
LOC: HO.HBST 11:14
PROVIDERS: PCP Internal Medicine; Visit Provider Counselor Mental Health
DX: F33.1 Major depressive disorder, recurrent, moderate (principal); F50.9 Eating disorder, unspecified
CPT/HCPCS: 90837

== ENCOUNTER → 2022-12-26 11:00 | Outpatient (BNVA) | payer OTHER, MEDICAID, SELFPAY | PROVIDERS: PCP Internal Medicine; Visit Provider Counselor Mental Health ==

== ENCOUNTER 2023-02-20 11:19 | Outpatient (REF) | payer MEDICAID, SELFPAY | END 2023-02-20 11:20 | disposition home or self-care (01) | LOC: HO.MAMMO 11:19 | PROVIDERS: PCP Internal Medicine; Visit Provider Internal Medicine | DX: R92.1 Mammographic calcification found on diagnostic imaging of breast (principal); Z41.1 Encounter for cosmetic surgery | CPT/HCPCS: 77062; 77066 ==

== ENCOUNTER → 2023-02-20 11:30 | Outpatient (BNV) | payer MEDICAID, SELFPAY | PROVIDERS: PCP Internal Medicine; Visit Provider Radiology Diagnostic Radiology | DX: R92.1 Mammographic calcification found on diagnostic imaging of breast (principal) | CPT/HCPCS: 77062; 77066 ==

== ENCOUNTER 2024-04-16 10:40 | Outpatient (REF) | payer MEDICAID, SELFPAY ==
--- OUTSIDE RECORDS SUMMARY | 2024-04-16 12:13 | XMS_ITS | Encounter Summary ---
Author Organization [employer] Address [address] [facility] [address] [place] [address] Care Team Providers Care Dope Heater Name Role Phone Jewel Loredo MD Primary Care Prov ider Encounter Details Date Type Department Care Team (Latest Contact Info) Description 04/15/2024 Travel Social History Tobacco Use Types Packs/Day Years Used Date Smoking Tobacco: Never Smokeless Tobacco: Never Alcohol Use Standard Drinks/Week Comments Never 0 (1 standard drink = 0.6 oz pur e alcohol) Depression Answer Date Recorded Patient Health Questionnaire-9 Score 2 10/29/2023 Patient Health Questionnaire-9 Score 2 10/29/2023 Last PHQ-9: Questionnaire Data Not on file 0 10/29/2023 Housing Stability Answer Date Recorded What is your housing situation today? I have jerzy tobias 10/24/[address] you li ve. Do you have problems with any of the following? None of the above 10/24/2023 Food Insecurity Answer Date Recorded Within the past 12 months, y ou worried that your food would run out before you got money to buy more: Never True 10/24/2023 Within the past 12 months,th e food you bought just didn't last and you didn't have enough money to get more: Never True 07/2023 Transportation Answer Date Recorded In the past 12 months, has l ack of transportation kept you from medical appts, meetings, work or from getting things needed for daily living? No 10/24/2023 Utilities Answer Date Recorded In the past 12 months, has t he electric, gas, oil or water company threatened to shut off services in your home? No 10/24/2023 Depression Answer Date Recorded Patient Health Questionnaire-2 Score 2 10/29/2023 Internet Access Answer Date Recorded Internet Access Q1 Yes 10/24/2023 Internet Access Q2 Not on file 10/24/2023 Comments Unknown Sex and Gender Information Value Date Recorded Sex Assigned at Female 12/17/2021 10:29 AM EDT Legal Sex Female 10:29 AM EDT Gender Identity Female 12/17/2021 10:29 AM EDT Sexual Orientation Choose not to disclose 2021 10:29 AM EDT documented as of this encounter Plan of Treatment Upcoming Encounters Date Type Department Care Team (Late st Contact Info) Description 04/22/2024 10:15 AM EST Telemedicine [facility] [address] [place] [address] Jeewl Loredo MD [address] [place] [address] documented as of this encounter Visit Diagnoses Not on filedocumented in this encounter Additional Health Concerns Assessment Noted Time PHQ-9 Depression Total Score: 2 10/29/19 24 9:36 AM EDT documented as of this encounter Care Teams Dope Heater Relationship Specialty Start Date End Date Jewel Loredo MD [address] [place] [address] PCP - General Internal Medicine 07/13/19 documented as of this encounter
--- OUTSIDE RECORDS SUMMARY | 2024-04-16 12:13 | XMS_ITS | Encounter Summary ---
Author Organization [employer] Address [address] [place] [address] Care Team Providers Care Show Host Name Role Phone Jewel Loredo MD Primary Care Prov ider Encounter Details Date Type Department Care Team (Late st Contact Info) Description 05/30/2023 Orders Only [facility] MED[facility] [address] [place] [address] ProviderDenisha MD Social History Tobacco Use Types Packs/Day Years Used Date Smoking Tobacco: Never Smokeless Tobacco: Never Alcohol Use Standard Drinks/Week Comments Never 0 (1 standard drink = 0.6 oz pur e alcohol) Depression Answer Date Recorded Patient Health Questionnaire-9 Score 0 05/17/2022 Housing Stability Answer Date Recorded What is your housing situation today? I have jerzy tobias 12/02/[address] you li ve. Do you have problems with any of the following? None of the above 12/02/2022 Food Insecurity Answer Date Recorded Within the past 12 months, y ou worried that your food would run out before you got money to buy more: Never True 12/02/2022 Within the past 12 months,th e food you bought just didn't last and you didn't have enough money to get more: Never True Transportation Answer Date Recorded In the past 12 months, has l ack of transportation kept you from medical appts, meetings, work or from getting things needed for daily living? No 12/02/2022 Utilities Answer Date Recorded In the past 12 months, has t he electric, gas, oil or water company threatened to shut off services in your home? No 12/02/2022 Depression Answer Date Recorded Patient Health Questionnaire-2 Score 0 05/17/2022 Comments Unknown Sex and Gender Information Value [...] Info) Description 04/22/2024 10:15 AM EST Telemedicine [facility] [address] [place] [address] Jewel Loredo MD [address] [place] [address] documented as of this encounter Procedures Procedure Name Priority Date/Time Associated Diagnosis Comments HM COLONOSCOPY Routine 07/04/2015 3:56 PM EDT documented in this encounter Results * Hm Colonoscopy (07/04/2015 3:56 PM EDT) us Historical Provider HEALTH MAINTENANCE Final Result documented in this encounter Visit Diagnoses Not on filedocumented in this encounter Additional Health Concerns Assessment Noted Time PHQ-9 Depression Total Score: 0 05/18/19 23 9:56 AM EDT documented as of this encounter Care Teams Show Host Relationship Specialty Start Date End Date Jewel Loredo MD [address] [place] [address] PCP - General Internal Medicine 07/13/19 documented as of this encounter
--- OUTSIDE RECORDS SUMMARY | 2024-04-16 12:13 | XMS_ITS | Encounter Summary ---
Author Organization [employer] Address [address] [facility] [address] [place] [address] Care Team Providers Care Wet Process Miller Head Name Role Phone Jewel Loredo MD Primary Care Prov ider Reason for Visit * Reason Onset Date Comments Walk-In 04/15/2024 Encounter Details Date Type Department Care Team ([facility] st Contact Info) Description 04/15/2024 Telephone [facility]S [address] [place], [place] [id number] Jewel Loredo MD [address] [place] [address] Walk-In Social History Tobacco Use Types Packs/Day Years [...] AM EDT documented as of this encounter Miscellaneous Notes * Telephone Encounter - Yolanda Vazquez RN - 04/15/2024 10:06 AM EST Patient c/o back pain and hip pain x 1 month. Was able to schedule patient appointment for today stephanie evaluated. * Telephone Encounter - Aston Anderson - 04/15/2024 9:52 AM EST Pt walked in stating back/hip has been in pain for about 1mo. documented in this encounter Plan of Treatment Upcoming Encounters Date Type Department Care Team (Late st Contact Info) Description 04/22/2024 10:15 AM EST Telemedicine [facility] [address] [place] [address] Jewel Loredo MD [address] [place] [address] documented as of this encounter Visit Diagnoses Not on filedocumented in this encounter Additional Health Concerns Assessment Noted Time PHQ-9 Depression Total Score: 2 10/29/19 24 9:36 AM EDT documented as of this encounter Care Teams Wet Process Miller Head Relationship Specialty Start Date End Date Jewel Loredo MD [address] [place] [address] PCP - General Internal Medicine 07/13/19 documented as of this encounter
--- OUTSIDE RECORDS SUMMARY | 2024-04-16 12:13 | XMS_ITS | Encounter Summary ---
Author Organization [employer] Address [address] [facility] [address] [place] [address] Care Team Providers Care Patient Accounts Specialist Name Role Phone Jewel Loredo MD Primary Care Prov ider Reason for Referral * Consultation (Routine) - Pending Review Specialty Diagnoses / Procedures Referred By Karen nuno Referred To Contact Orthopaedic Surgery Diagnoses Chronic bilateral low back pain with right-sided sciatica Jennifer Arroyo MD [address] [place] [address] Phone: tel: fax: Referral ID Status Reason Start Date Expiration Date Visits Requested Visits Authorized [id number] Pending Review Specialty Services Required 04/15/2024 04/15/2025 1 1 Scheduling Instructions Please wait for 2 weeks Inessa Rogers is changing Insurance Reason for Visit * Reason Comments Back Pain Hip pain Encounter Details Date Type Department Care Team (Late st Contact Info) Description 04/15/2024 10:45 AM EST Office Visit [facility] [address] [place] [address] Jennifer Arroyo MD [address] [place] [address] Chronic bilateral low back pain with right-sided sciatica (Primary Dx) Social History Tobacco Use Types Packs/Day Years Used Date Smoking Tobacco: Never Smokeless Tobacco: Never Tobacco Cessation:Counseling Given: Not Answered Alcohol Use Standard Drinks/Week Comments Never 0 [...] AM EDT documented as of this encounter Last Filed Vital Signs Vital Sign Reading Time Taken Comments Blood Pressure 148/75 04/15/2024 10:06 AM EST Pulse 87 04/15/2024 10:06 AM EST Temperature 36.7 ??C (98 ??F) 04/15/2024 10:06 AM EST Respiratory Rate 20 04/15/2024 10:06 AM EST Oxygen Saturation - - Inhaled Oxygen Concentration - - Weight 91.6 kg (202 lb) 04/15/2024 10:06 AM EST Height 160 cm (5' 3 ) 04/15/2024 10:06 AM EST Body Mass Index 35.78 04/15/2024 10:06 AM EST documented in this encounter Progress Notes * Jennifer Arroyo MD - 04/15/2024 10:45 AM EST Images from the original note were not included. Subjective Patient ID: Inessa Rogers is a 59 y.o. female who presents for Back Pain (Hip pain). Back Pain This is a chronic problem. The current episode started more than 1 year ago. The problem occurs constantly. The problem has been gradually worsening since onset. The pain is present in the lumbar spine. The quality of the pain is described as aching and stabbing. The pain does not radiate. The painis at a severity of 7/10. The pain is moderate. The pain is The same all the time. Stiffness is pres ent All day. Pertinent negatives include no chest pain or headaches. Risk factors: h/o back surgery. She has tried bed rest for the symptoms. The treatment provided no relief. Review of Systems Constitutional: Negative. Respiratory: Negative. Negative for shortness of breath. Cardiovascular: Negative for chest pain and palpitations. Gastrointestinal: Negative. Genitourinary: Negative. Musculoskeletal: Positive for back pain. Negative for neck pain. Neurological: Negative for headaches. Objective Physical Exam Constitutional: Appearance: Normal appearance. Cardiovascular: Rate and Rhythm: Normal rate and regular rhythm. Pulses: Normal pulses. Heart sounds: Normal heart sounds. Pulmonary: Effort: Pulmonary effort is normal. Musculoskeletal: Lumbar back: Spasms and tenderness present. Back: Neurological: Mental Status: She is alert. Assessment/Plan Diagnoses and all orders for this visit: Chronic bilateral low back pain with right-sided sciatica Comments: Started on Meloxicam BID Pt referrd to ortho Advised warm compress Orders: - Referral to Orthopaedic Surgery; Future Other orders - meloxicam (Mobic) 7.5 MG tablet; Take 1 tablet (7.5 mg) by mouth 2 times daily. documented in this encounter Plan of Treatment Upcoming Encounters Date Type Department Care Team ([facility] st Contact Info) Description 04/22/2024 10:15 AM EST Telemedicine [facility] [address] [place] [address] RogersJewel Chan MD [address] [place] [address] Scheduled Referrals Name Type Priority Associated Diagnoses Order Schedule Referral to Orthopaedic Surgery Outpatient Referral Routine Chronic bilateral low back pain with right-sided sciatica Expected: 04/15/2024 (Approximate), Expires: 04/15/2025 documented as of this encounter Visit Diagnoses Diagnosis Chronic bilateral low back pain with right-sided sciatica- Primary documented in this encounter Additional Health Concerns Assessment Noted Time PHQ-9 Depression Total Score: 2 10/29/19 24 9:36 AM EDT documented as of this encounter Care Teams Patient Accounts Specialist Relationship Specialty Start Date End Date RogersJewel Chan MD [address] [place] [address] PCP - General Internal Medicine 07/13/19 documented as of this encounter
--- OUTSIDE RECORDS SUMMARY | 2024-04-16 12:13 | XMS_ITS | Encounter Summary ---
Author Organization [employer] Address [address] [facility] [address] [place] [address] Care Team Providers Care [employer] Name Role Phone Jewel Loredo MD Primary Care Prov ider Reason for Visit * Reason Onset Date Comments Nurse Triage 08/07/2022 Encounter Details Date Type Department Care Team ([facility] st Contact Info) Description 08/07/2022 Telephone [facility] [address] [place], [place] [id number] Jewel Loredo MD [address] [place] [address] Nurse Triage Social History Tobacco Use Types Packs/Day Years Used Date Smoking Tobacco: Never Smokeless Tobacco: Never Alcohol Use Standard Drinks/Week Comments Never 0 (1 standard drink = 0.6 oz pur e alcohol) Depression Answer Date Recorded Patient Health Questionnaire-9 Score 0 05/17/2022 Depression Answer Date Recorded Patient Health Questionnaire-2 Score 0 05/17/2022 Comments Unknown Sex and Gender Information Value Date Recorded Sex Assigned at Female 12/17/2021 10:29 AM EDT Legal Sex Female 10:29 AM EDT Gender Identity Female 12/17/2021 10:29 AM EDT Sexual Orientation Choose not to disclose 2021 10:29 AM EDT COVID-19 Exposure Response Date Recorded In the last 10 days, have yo u been in contact with someone who was confirmed or suspected to have Coronavirus/COVID-19? No / Unsure 07/24/2022 9:18 AM EDT documented as of this encounter Miscellaneous Notes * Telephone Encounter - Guadalupe Fischer RN - 08/07/2022 12:32 PM EDT Call returned to Inessa Rogers for triage. No answer LVM to return call to [facility] triage line. Protocol Used: No Contact or Duplicate Contact Call (Adult) Protocol-Based Disposition: No Contact Call Positive Triage Question: * Message left on identified voicemail * All higher-acuity triage questions were negative * Telephone Encounter - Tamiko Velez - 08/07/2022 11:52 AM EDT Symptom: Sore Throat Outcome: Schedule an urgent appointment (within 4 hours) or talk to a nurse or provider soon Reason: Trouble drinking The caller accepted this outcome documented in this encounter Plan of Treatment Upcoming Encounters Date Type Department Care Team (Late st Contact Info) Description 04/22/2024 10:15 AM EST [facility]medicine [facility] [address] [place] [address] Jewel Loredo MD [address] [place] [address] documented as of this encounter Visit Diagnoses Not on filedocumented in this encounter Additional Health Concerns Assessment Noted Time PHQ-9 Depression Total Score: 0 05/18/19 23 9:56 AM EDT documented as of this encounter Care Teams [employer] Relationship Specialty Start Date End Date Jewel Loredo MD [address] [place] [address] PCP - General Internal Medicine 07/13/19 documented as of this encounter
--- OUTSIDE RECORDS SUMMARY | 2024-04-16 12:13 | XMS_ITS | Clinical Summary ---
Author Organization [employer] Address [address] [place] [address] Care Team Providers Care Programming Development Project Manager Name Role Phone Jewel Loredo MD Primary Care Prov ider Allergies Active Allergy Reactions Criticality Noted Date Comments Lisinopril Cough,Angioedema 02/15/2022 Penicillins Rash Low 02/15/2022 Zolpidem 01/27/2023 Other reaction(s): confusion Medications losartan-hydroC HLOROthiazide (Hyzaar) 100-25 MG tablet TAKE 1 TABLET BY MOUTH EVERY MORNING 90 tablet 3 05/23/2023 Active FLUoxetine (PROzac) 40 MG capsule Take 40 mg by mouth Once per day. Active cyclobenzaprine (Flexeril) 10 MG tablet Take 1 tablet (10 mg) by mouth 3 times daily for 10 days. 30 tablet 10/29/2023 Active meloxicam (Mobic) 7.5 MG tablet Take 1 tablet (7.5 mg) by mouth 2 times daily. 60 tablet 11 04/15/2024 Active Active Problems Problem Noted Date Diagnosed Date Acute pain of right shoulder 10/29/2023 Assessment & Plan (10/29/2023 7:35 PM EDT): Will send xray, patient refers fell about 1 month ago with stretched hands, did not seek medical help, will prescribe muscle relaxant, continue with nsaids/tylenol at home and will provide a ketorolac injection today. Will refer to ortho for evaluation Class 2 obesity due to exces s calories without serious comorbidity with body mass index (BMI) of 35.0 to 35.9 in adult 06/28/2022 Assessment & Plan (06/28/2022 12:57 PM EDT): Will refer to obesity clinic for gastric bypass eval Primary hypertension 06/28/2022 Screening for colon cancer 06/28/2022 Assessment & Plan (06/28/2022 1:05 PM EDT): Done in 2016 due in 10 years Chronic bilateral low back pain with right-sided sciatica 05/17/2022 Assessment & Plan (02/07/2023 9:57 AM EST): Will prescribe ibuprofen for use as needed, no recent trauma, no warning signs Will send request for shower chair due to risk for fall Assessment & Plan (06/28/2022 12:56 PM EDT): Followed by specialist, will get mri done next week, start gabapentin, lidocaine and naproxen as needed Assessment & Plan (05/17/2022 10:17 AM EDT): Chronic back pain, hx of surgery x3, no recent trauma, will order gabapentin for neuropatic pain, continue with NSAIDS, rest/apply ice/heat, will also refer to pain management Will order script for one point cane Essential hypertension 04/08/2018 Assessment & Plan (10/29/2023 7:31 PM EDT): Controlled on current therapy, continue low sodium diet and exercise as tolerated, follow up in 4 months Assessment & Plan (02/07/2023 9:56 AM EST): Controlled, on losartan/hctz, continue low sodium diet and exercise as tolerated. Follow up in 3-4 months Assessment & Plan (09/12/2022 9:32 AM EDT): Controlled, reinforced daily monitoring, low sodium diet exercise and to continue weight loss. Labs reviewed with patient, no changes in treatment, will follow up in 3 months Assessment & Plan (06/28/2022 12:44 PM EDT): Controlled, new labs were ordered, reinforced low sodium diet and exercise. Mood disorder 04/08/2018 H/O: hysterectomy 10/06/2017 Chronic low back pain 03/15/2015 Encounters Date Type Department Care Team Description 04/15/2024 10:45 AM EST Office Visit [facility] [address] [place] [address] Jennifer Arroyo MD Chronic bilateral low back pain with right-sided sciatica (Primary Dx) 04/15/2024 Telephone [facility] [address] [place] [address] Jewel Loredo MD 04/15/2024 Travel 04/15/2024 Telephone [facility] [address] [place] [address] Jewel Loredo MD Walk-In 03/16/2024 Telephone [facility] [address] [place] [address] Jewel Loredo MD 03/02/2024 Telephone [facility] [address] [place] [address] Jewel Loredo MD No Show 02/24/2024 Patient Outreach [facility] [address] [place] [address] Jewel Loredo MD Pre-visit Planning 02/13/2024 Telephone [facility] [address] [place] [address] Jewel Loredo MD CX APPOINTMENT 02/13/2024 Travel 02/12/2024 Telephone [facility] [address] [place] [address] Jewel Loredo MD Nurse Triage from Last 3 Months Immunizations Name Administration Dates Next Due Influenza Injectable Quadriv alant Preservative Free IIV4 MDCK 01/22/2022,01/07/2020 Influenza injectable quadriv alent IIV4 with preservative 12/03/2018,11/28/2016,01/02/2016 Influenza injectable quadriv alent preservative free 11/02/2020,01/04/2018,03/15/2015 Influenza, IIV3, injectable 01/26/2014 Influenza, seasonal, injecta ble, preservative free 10/29/2023 Tdap 01/02/2016 Zoster, Recombinant 11/25/2018,09/04/2018 Social History Tobacco Use Types Packs/Day Years [...] not to disclose 2021 10:29 AM EDT Last Filed Vital Signs Vital Sign Reading Time Taken Comments Blood Pressure 148/75 04/15/2024 10:06 AM EST Pulse 87 04/15/2024 10:06 AM EST Temperature 36.7 ??C (98 ??F) 04/15/2024 10:06 AM EST Respiratory Rate 20 04/15/2024 10:06 AM EST Oxygen Saturation 98% 01/27/2023 9:39 AM EST Inhaled Oxygen Concentration - - Weight 91.6 kg (202 lb) 04/15/2024 10:06 AM EST Height 160 cm (5' 3 ) 04/15/2024 10:06 AM EST Body Mass Index 35.78 04/15/2024 10:06 AM EST Plan of Treatment Upcoming Encounters Date Type Department Care Team (Late st Contact Info) Description 04/22/2024 10:15 AM EST Telemedicine [facility] [address], [place] [phone] RogersJewel Chan MD [address] [place], [place] [phone] Health Maintenance Due Date Last Done Comments CT Colonography 1967 Dental Oral Exam 1967 Dental Prophylaxis 1967 Dental X-Ray: Full Mouth 1967 FIT DNA/Cologuard 1967 FIT 1967 FOBT 1967 Sigmoidoscopy 1967 Alcohol/Substance Use Screening 1979 Hepatitis B Vaccines (1 of 3 - 19+ 3-dose series) 1986 Pap Smear 1988 HPV/Cotest 1997 Pneumococcal Vaccine: 50+ Years (1 of 1 - PCV) 2017 Dental X-Ray: Bitewings 05/21/2017 05/20/2016 COVID-19 Vaccine ( season) 2023 03/17/2021, 07/19/2020, 06/20/2020 SDOH Screening 10/23/2024 10/24/2023 Depression Screening 10/28/2024 10/29/2023, 10/29/19 24 Mammogram 02/20/2025 02/20/2023, 03/10/2022, 10/16/2021, Additional history exists Tobacco Screening 04/15/2025 04/15/2024 Colonoscopy 07/03/2025 07/04/2015 Colorectal Cancer Screening 07/03/2025 DTaP/Tdap/Td Vaccines (2 - Td or Tdap) 01/01/2026 01/02/2016, 06/01/2009 Lipid Panel 12/12/2027 12/11/2022, 06/17, 09/11/2020 RSV Patients and Patients Aged 60 years or older (1 - 1-dose 75+ series) 2042 Zoster Vaccines Completed 11/25/2018, 09/04/2018 HIV Screening Completed 01/02/2021 Hepatitis C Screening Completed 06/28/2022 Influenza Vaccine Completed 10/29/2023, , 11/02/2020, Additional history exists Cervical Cancer Screening Discontinued HIB Vaccines Aged Out No longer eligi ble based on patient's age to complete this topic HPV Vaccines Aged Out No longer eligi ble based on patient's age to complete this topic Hepatitis A Vaccines Aged Out No long er eligible based on patient's age to complete this topic IPV Vaccines Aged Out No longer eligi ble based on patient's age to complete this topic Meningococcal Vaccine Aged Out No akiko tanja eligible based on patient's age to complete this topic RSV under 20 months Aged Out No longe r eligible based on patient's age to complete this topic Rotavirus Vaccines Aged Out No longer eligible based on patient's age to complete this topic Procedures Procedure Name Priority Date/Time Associated Diagnosis Comments BI MAMMOGRAM DIAGNOSTIC TOMOSYNTHESIS BILATERAL Routine 02/20/2023 11:48 AM EST LIPID PANEL, STANDARD Routine 12/11/2022 10:10 AM EDT HEPATITIS C AB W/REFL TO HCV RNA, QN, PCR Routine 06/28/2022 12:12 PM EDT Primary hypertension HIV 1/2 ANTIGEN/ANTIBODY, FOURTH GENERATION W/RFL Routine 01/02/2021 9:50 AM EST BITEWING - SINGLE RADIOGRAPHIC IMAGE Routine 05/20/2016 12:00 AM EDT HM COLONOSCOPY Routine 07/04/2015 3:56 PM EDT from Last 3 Months or Most Recently Relevant to Health Maintenance Results * BI Mammogram Diagnostic Tomosynthesis Bilateral (02/20/2023 11:48 AM EST) Anatomical Region Laterality Modality Breast Bilateral Mammography 02/20/2023 11:4 8 AM EST Narrative 02/20/2023 1:05 PM EST ? [facility] ? [address] ?[place] [id number] ? Mammography Report ? Signed ? Patient: Sue,Inessa ?MR#: [id number] ?? 0 ? : 1965 ?Acct:[id number] ? Age/Sex: 57 / F ?ADM Date: 02/20/23 ? Loc: HO.MAMMO ? Attending Dr: Jewel Purcell MD ? Ordering Physician: Jewel Loredo MD ?Res ?? ults: 2Benign Findings ? Date of Service: 02/20/23 ?Follow Up: 1 Year From Orig ?? inal Mammogram ? Procedure(s): MM tomosynthesis diagnostic BI ?? Accession Number(s): [id number] ? cc: Jewel Loredo MD ? EXAMINATION: ?? MM DIAGNOSTIC DIGITAL BREAST TOMOSYNTHESIS, BILATERAL ? CLINICAL INFORMATION: ? 6 month Follow-up left breast calcifications to establish a just over ?? one-year stability. Patient also due for routine screening. History of ?? reduction mammoplasty approximately 9 years prior. ? COMPARISON: ?? Mammography: 05/15/2022, 10/16/2021 (BI-RADS 3), 10/11/2021 (BI-RADS ?? 0), 09/29/2020, and dating back to 2016. ? TECHNIQUE: ?? Digital breast tomosynthesis is performed in both the craniocaudal and ?? mediolateral oblique views along with computer-aided detection (CAD). ?? Synthesized 2D images are generated from the tomosynthesis. In addition ?? to standard views, 2-D spot magnification left CC views x2, and left ML ?? views x1 were also obtained. ? FINDINGS: ?? The breasts are heterogeneously dense, which may obscure small masses ?? (ACR BI-RADS breast composition Category c). ? The left breast calcifications of interest the central aspect of the ?? left breast have not changed in size, morphology, or number, and have a ?? classically benign appearance, being somewhat coarse and rounded. ?? They are arranged circumferential on the CC view and likely related to ?? dystrophic calcifications such as fibroadenomatous change or fat ?? necrosis. No further follow-up is recommended as these are clearly ?? benign. ? There are no suspicious calcifications in either breast. There are ?? bilateral vascular calcifications present. There are no suspicious ?? masses or areas of architectural distortion in either breast. The ?? parenchymal pattern is stable from prior exams. ? MM/MM tomosynthesis diagnostic BI ?? IMPRESSION: ?? There are no findings suspicious for malignancy in either breast. ? Left breast calcifications in the central aspect are clearly benign, ?? and no further follow-up is required. ? Recommend the patient resume annual routine screening in one year. ? ASSESSMENT: ? BI-RADS BI-RADS 2 - Benign Findings ? RECOMMENDATION: ?? 1 year F/U ? Results were provided to the patient at time of visit by the ?? technologist. ? This patient's information was entered into a reminder system with a ?? target due date for their next mammogram. ? Dictated By: ?Freddie Block MD ? Signed By: ?<Electronically signed by Freddie Block MD in OV> ?02/20/23 1301 ? DD/ 1148 ? TD/TT: ? Home Delivery Driver: ? Procedure Note Donotuseinterpreter, Image - 02/20/2023 [facility] [address] [place], [place] [address] Mammography Report Signed Patient: Inessa RogersMR#: [id number] 0 : 1965Acct:[id number] Age/Sex: 57 / FADM Date: 02/20/23 Loc: HO.MAMMO Attending Dr: Jewel Purcell MD Ordering Physician: Jewel Loredo ults: 2Benign Findings Date of Service: 02/20/23Follow Up: 1 Year From Orig inal Mammogram Procedure(s): MM tomosynthesis diagnostic BI Accession Number(s): [id number] cc: Jewel Loredo MD EXAMINATION: MM DIAGNOSTIC DIGITAL BREAST TOMOSYNTHESIS, BILATERAL CLINICAL INFORMATION: 6 month Follow-up left breast calcifications to establish a just over one-year stability. Patient also due for routine screening. History of reduction mammoplasty approximately 9 years prior. COMPARISON: Mammography: 05/15/2022, 10/16/2021 (BI-RADS 3), 10/11/2021 (BI-RADS 0), 09/29/2020, and dating back to 2016. TECHNIQUE: Digital breast tomosynthesis is performed in both the craniocaudal and mediolateral oblique views along with computer-aided detection (CAD). Synthesized 2D images are generated from the tomosynthesis. In addition to standard views, 2-D spot magnification left CC views x2, and left ML views x1 were also obtained. FINDINGS: The breasts are heterogeneously dense, which may obscure small masses (ACR BI-RADS breast composition Category c). The left breast calcifications of interest the central aspect of the left breast have not changed in size, morphology, or number, and have a classically benign appearance, being somewhat coarse and rounded. They are arranged circumferential on the CC view and likely related to dystrophic calcifications such as fibroadenomatous change or fat necrosis. No further follow-up is recommended as these are clearly benign. There are no suspicious calcifications in either breast. There are bilateral vascular calcifications present. There are no suspicious masses or areas of architectural distortion in either breast. The parenchymal pattern is stable from prior exams. MM/MM tomosynthesis diagnostic BI IMPRESSION: There are no findings suspicious for malignancy in either breast. Left breast calcifications in the central aspect are clearly benign, and no further follow-up is required. Recommend the patient resume annual routine screening in one year. ASSESSMENT: BI-RADS BI-RADS 2 - Benign Findings RECOMMENDATION: 1 year F/U Results were provided to the patient at time of visit by the technologist. This patient's information was entered into a reminder system with a target due date for their next mammogram. Dictated By: Freddie Block MD Signed By: <Electronically signed by Freddie Block MD in OV> 02/20/23 1301 DD/ 1148 TD/TT: Home Delivery Driver: Jewel Purcell MD IMG BI PROCEDURES Final Result * (ABNORMAL) Lipid Panel, Standard (12/11/2022 10:10 AM EDT) Triglycerides 104 <150 mg/dL [facility] Comment:Desirable Triglyceri de: less than 150 mg/dLBorderline High Triglyceride 150-199 mg/dLHigh Triglyceride: 200-499 mg/dLVery High Triglyceride: greater than or equal to 5OO mg/dL Cholesterol 150 <200 mg/dL [facility] Comment:Desirable Cholestero l: less than 200 mg/dLBorderline High Cholesterol: 200-239 mg/dLHigh Cholesterol: greater than 239 mg/dL LDL Cholesterol Calculated 90 <100 mg/dL [facility] Comment:Desirable LDL: less than 100 mg/dLNear Optimal/Above Optimal LDL: 110- 129 mg/dLBorderline High LDL: 130-159 mg/dLHigh LDL: 160-189 mg/dLVery High LDL: greater than or equal to 190 mg/dL HDL Cholesterol 40(L) >40 mg/dL [facility] Comment:Desirable HDL: great er than 40 mg/dL Note: This HDL assay may give artificially low results in patients with liver disease. 12/11/2022 10:1 0 AM EDT 12/11/2022 10:12 AM EDT Generic External Data Provider LAB BLOOD ORDERAB LES Final Result Performing Organization Address City/[facility]/ZIP Co de Phone Number [facility] [address] [place] [address] [phone] * Hepatitis C Antibody with Reflex to HCV, RNA, Quantitative, Real-Time PCR (06/28/2022 12:12 PM EDT) Hepatitis C Antibody NON-REACT LUCRECIA NON-REACT LUCRECIA [employer] Index 0.11 <1.00 Fun[employer]cha Comment: HCV antibody was non-reactive. There is no laboratory evidence of HCV infection. In most cases, no further action is required. However, if recent HCV exposure is suspected, a test for HCV RNA (test code 79029) is suggested. For additional information please refer to http://education.[employer]/faq/WHA65v8 (This link is being provided for informational/ educational purposes only.) Blood Venous blood specimen / Unknown 06/28/2022 12:12 PM EDT 06/28/2022 12:13 PM EDT Narrative [facility] - 06/29/2022 6:26 AM EDT FASTING:NO FASTING: NO Jewel Purcell MD LAB BLOOD ORDERABL ES Final Result Performing Organization Address City/[facility] Co de Phone Number [facility] [address], [place] [address] [employer] [place] [facility] [address] [place] [address] * HIV 1/2 ANTIGEN/ANTIBODY,FOURTH GENERATION W/RFL (01/02/2021 9:50 AM EST) HIV-1/2 ANTIGEN AND ANTIBODIES, 4TH GENERATION W/ REFLEX NON-REACT [facility] NON-REACT [facility] Comment: HIV-1 antigen and HIV-1/HIV-2 antibodies were not detected. There is no laboratory evidence of HIV infection. ?? PLEASE NOTE: This information has been disclosed to you from records whose confidentiality may be protected by state law. ??If your state requires such protection, then the state law prohibits you from making any further disclosure of the information without the specific written consent of the person to whom it pertains, or as otherwise permitted by law. A general authorization for the release of medical or other information is NOT sufficient for this purpose. ? For additional information please refer to http://[employer]/faq/CHL738 (This link is being provided for informational/ educational purposes only.) ? The performance of this assay has not been clinically validated in patients less than 2 years old. ?? 01/02/2021 9:50 AM EST Shikha BEE LAB BLOOD ORDERABLES Annemarie gooden Result Performing Organization Address City/State/[facility] Co de Phone Number [facility] [address] * Hm Colonoscopy (07/04/2015 3:56 PM EDT) Historical Provider HEALTH MAINTENANCE Final Result from Last 3 Months or Most Recently Relevant to Health Maintenance Insurance [facility] C3 DENTAL-[facility] MEDICAID STAND ADULT Care Teams Programming Development Project Manager Relationship Specialty Start Date End Date Jewel Loredo MD [address] [place] [phone] PCP - General Internal Medicine 07/13/19
--- OUTSIDE RECORDS SUMMARY | 2024-04-16 12:13 | XMS_ITS | Encounter Summary ---
Author Organization [employer] Address [address] [facility] 7 [place] [address] Care Team Providers Care Powered Bridge Specialist Name Role Phone Jewel Loredo MD Primary Care Prov ider Reason for Visit * Reason Onset Date Comments Call Back Request 04/04/2023 Encounter Details Date Type Department Care Team ([facility] st Contact Info) Description 04/04/2023 Telephone [facility] [address] [place] [address] Jewel Loredo MD [address] [place] [phone] Call Back Request Social History Tobacco Use Types Packs/Day Years [...] encounter Miscellaneous Notes * Telephone Encounter - Shirley Thompson RN - 04/08/2023 1:48 PM EST Tc returned to patient regarding message below. Patient reports recent fall on her way to the bathroom in the middle of the night. She was not injured because she caught herself, but she strained Yannick shoulder, which had an old injury. In the past, approximately 2 years ago, she received cortisoneinjections in this shoulder which helped. She is requesting a referral to get these again. She is also requesting a prescription for a commode for her bedroom so that she decreases the likelihood of nighttime falls on her way to the bathroom. PCP had availability for telephone visit today at 2:30pmand patient agreeable to speak with him today by phone and make a plan for further evaluation/treatment. Scheduled for 2:30pm telephone visit today with Dr Rogers. Routing note to PCP so he is aware. Tc from pt requesting Cortizone injection. Pt stated has had injection before with previous pcp. Please contact pt at [phone]. * Telephone Encounter - Prasad Simpson - 04/04/2023 12:50 PM EST Tc from pt requesting Cortizone injection. Pt stated has had injection before with previous pcp. Please contact pt at [phone]. documented in this encounter Plan of Treatment Upcoming Encounters Date Type Department Care Team (Late st Contact Info) Description 04/22/2024 10:15 AM EST Telemedicine [facility] [address] [place] [address] Jewel Loredo MD [address] [place] [address] documented as of this encounter Visit Diagnoses Not on filedocumented in this encounter Additional Health Concerns Assessment Noted Time PHQ-9 Depression Total Score: 0 05/18/19 23 9:56 AM EDT documented as of this encounter Care Teams Powered Bridge Specialist Relationship Specialty Start Date End Date Jewel Loredo MD [address] [place] [address] PCP - General Internal Medicine 07/13/19 documented as of this encounter
--- OUTSIDE RECORDS SUMMARY | 2024-04-16 12:13 | XMS_ITS | Patient Health Record ---
Author Organization [facility] Address [address] [place], [place] [id number] Care Team Providers Care Research Laboratory Manager Name Role Phone [facility] Primary Care Provider Un available Reason For Referral No Information Plan Of Treatment No Information Insurance Providers Payer Name Payer Address Payer Phone Subscriber Number Group Number Insured Name Patient Relationship to Insured Coverage Start Date Coverage End Date [facility] [employer] [address] [place] [phone] [id number] Sue Wylie Self - patient is the insured 2
--- OUTSIDE RECORDS SUMMARY | 2024-04-16 12:13 | XMS_ITS | Encounter Summary ---
Author Organization [employer] Address [address] [facility] [address]t [place] [address] Care Team Providers Care Graphite Pan Drier Tender Name Role Phone Jewel Loredo MD Primary Care Prov ider Encounter Details Date Type Department Care Team (Late st Contact Info) Description 04/15/[address] [facility] [address] [place], [place] [phone] Jewel Loredo MD [address] [place] [address] Social History Tobacco Use Types Packs/Day Years [...] encounter Miscellaneous Notes * Telephone Encounter - Teena Calderon MA - 04/15/2024 1:00 PM EST Called pt for tele appt today with Dr. Rogers. Pt didn't answer, lvm to call office back. documented in this encounter Plan of Treatment Upcoming Encounters Date Type Department Care Team (Late st Contact Info) Description 04/22/2024 10:15 AM EST Telemedicine [facility] [address] [place] [address] Jewel Loredo MD [address] [place] [address] documented as of this encounter Visit Diagnoses Not on filedocumented in this encounter Additional Health Concerns Assessment Noted Time PHQ-9 Depression Total Score: 2 10/29/19 24 9:36 AM EDT documented as of this encounter Care Teams Graphite Pan Drier Tender Relationship Specialty Start Date End Date Jewel Loredo MD [address] [place] [address] PCP - General Internal Medicine 07/13/19 documented as of this encounter
[2024-04-16 14:42] LABS: MANUAL DIFF FLAG NO
[2024-04-16 14:48] LABS: Basophils Percent Auto 0.5 % (0-2); Eosinophils Absolute Auto 0.1 X10*3/uL (0.0-0.4); Eosinophils Percent Auto 1.7 % (0-4); Hematocrit 41.3 % (37.0-47.0); Hemoglobin 13.6 g/dl (12.0-16.0); Imm Gran Abs Auto 0.03 X10*3/uL (0.00-0.03); Imm Gran Pct Auto 0.4 % (0.0-0.4); Lymphocytes Absolute Auto 3.1 X10*3/uL (1.2-4.9); Lymphocytes Percent Auto 40.4 % (20-40); Mean Corpuscular HGB Conc 32.9 g/dl (31.0-35.0); Mean Corpuscular Hemoglobin 27.4 pg (27.0-33.0); Mean Corpuscular Volume 83.3 fL (80.0-98.0); Mean Platelet Volume 12.5 fL (9.4-12.3); Monocytes Absolute Auto 0.6 X10*3/uL (0.1-1.2); Monocytes Percent Auto 7.7 % (2-11); Neutrophils Absolute Auto 3.8 x10*3/uL (2.0-8.3); Neutrophils Percent Auto 49.3 % (45-73); Platelet Count 198 X10*3/uL (160-400); Red Blood Count 4.96 X10*6/uL (4.20-5.50); Red Cell Distribution Width 13.2 % (11.0-16.0); White Blood Count 7.7 X10*3/uL (4.8-10.8)
[2024-04-16 14:56] LABS: Estimated Average Glucose 114 mg/dL; Hemoglobin A1C 136.8873 umol/L; Hemoglobin A1c % 5.6 % (<6.0); Total Hemoglobin (HGBA1C) 3631.3114 umol/L
[2024-04-16 18:40] LABS: Alanine Aminotransferase 41 U/L (0-31); Alkaline Phosphatase 104 U/L (39-117); Anion Gap 14 (12-20); Aspartate Amino Transferase 37 U/L (5-31); Bilirubin Total 0.4 mg/dL (0.0-1.0); Blood Urea Nitrogen 16 mg/dL (9-16); Calcium 9.4 mg/dL (8.4-10.2); Carbon Dioxide 26 mmol/L (22-29); Chloride 104 mmol/L (96-108); Cholesterol 172 mg/dL (<200); Estimated Glomerular Filt Rate > 60; Glucose Random 86 mg/dL (60-115); HDL Cholesterol 46 mg/dL (>40); LDL Cholesterol Calculated 99 mg/dL (<100); Potassium 3.3 mmol/L (3.3-5.1); Sodium 141 mmol/L (135-145); Total Protein 7.6 g/dL (6.5-8.0); Triglycerides 138 mg/dL (<150)
== END 2024-04-16 10:41 | disposition home or self-care (01) ==
LOC: HO.CHCLDS 10:40
PROVIDERS: Visit Provider Internal Medicine
DX: I10 Essential (primary) hypertension (principal)
CPT/HCPCS: 36415; 80053; 80061; 83036; 84443; 85025

== ENCOUNTER 2024-05-12 13:24 | Outpatient (REF) | payer MEDICAID, SELFPAY ==
--- OUTSIDE RECORDS SUMMARY | 2024-05-12 15:58 | XMS_ITS | Encounter Summary ---
Author Organization [employer] Address 75 [facility] 7t [place] [address] Care Team Providers Care Control Room Technician Name Role Phone Jewel Loredo MD Primary Care Prov ider Reason for Referral * Consultation (Routine) - Authorized Specialty Diagnoses / Procedures Referred By Contac t Referred To Contact Orthopaedic Surgery Diagnoses Chronic bilateral low back pain with right-sided sciatica Jennifer Arroyo MD [address] [place] [address] Phone: tel: fax: [facility] [address] [place] [address] [place] [address] Phone: tel: fax: Referral ID Status Reason Start Date Expiration Date Visits Requested Visits Authorized [id number] Authorized Specialty Services Required 04/15/2024 04/15/2025 1 1 Scheduling Instructions Please wait for 2 weeks Inessa Rogers is changing Insurance Reason for Visit * Reason Comments Back Pain Hip pain Encounter Details Date Type Department Care Team ([facility] st Contact Info) Description 04/15/2024 10:45 AM EST Office Visit [facility] MED & PEDS [address] [place], [place] [phone] Jennifer Arroyo MD [address] [place], [place] [phone] Chronic bilateral low back pain with right-sided [...] Care Team (Late st Contact Info) Description 05/24/2024 8:45 AM EDT Telemedicine [facility] MED & PEDS [address] [place] [address] Jewel Loredo MD [address] [place] [address] Scheduled Referrals Name Type Priority Associated Diagnoses [...] documented as of this encounter Care Teams Control Room Technician Relationship Specialty Start Date End Date Jewel Loredo MD [address] [place] [address] PCP - General Internal Medicine 07/13/19 documented as of this encounter
--- OUTSIDE RECORDS SUMMARY | 2024-05-12 15:58 | XMS_ITS | Encounter Summary ---
Author Organization [employer] Address 75 [facility] 7t [place] [address] Care Team Providers Care Dryer Feeder Name Role Phone Jewel Loredo MD Primary Care Prov ider Encounter Details Date Type Department Care Team (Late st Contact Info) Description 04/15/2024 Telephone [facility] CH[facility] MED & PEDS [address] [place], [place] [phone] Jewel Loredo MD [address] [place] [address] Social History Tobacco Use Types Packs/Day Years [...] Info) Description 05/24/2024 8:45 AM EDT Telemedicine [facility] MED & PEDS [address] [place] [address] Jewel Loredo MD [address] [place] [address] documented as of this encounter Visit Diagnoses Not on filedocumented in this encounter Additional Health Concerns Assessment Noted Time PHQ-9 Depression Total Score: 2 10/29/19 24 9:36 AM EDT documented as of this encounter Care Teams Dryer Feeder Relationship Specialty Start Date End Date Jewel Loredo MD [address] [place] [address] PCP - General Internal Medicine 07/13/19 documented as of this encounter
--- OUTSIDE RECORDS SUMMARY | 2024-05-12 15:58 | XMS_ITS | Encounter Summary ---
Author Organization [employer] Address 75 [facility] 7 [place] [address] Care Team Providers Care Converting Technician Name Role Phone Jewel Loredo MD Primary Care Prov ider Reason for Visit * Reason Onset Date Comments Nurse Triage 08/07/2022 Encounter Details Date Type Department Care Team ([facility] st Contact Info) Description 08/07/2022 Telephone [facility] MED [facility] PEDS [address] [place], [place] [phone] Jewel Loredo MD [address] [place] [address] Nurse Triage Social History Tobacco Use Types [...] No answer LVM to return call to [facility] triage line. Protocol Used: No Contact or [...] Info) Description 05/24/2024 8:45 AM EDT Telemedicine [facility] MED & PEDS [address] [place] [address] Jewel Loredo MD [address] [place] [address] documented as of this encounter Visit Diagnoses Not on filedocumented in this encounter Additional Health Concerns Assessment Noted Time PHQ-9 Depression Total Score: 0 05/18/19 23 9:56 AM EDT documented as of this encounter Care Teams Converting Technician Relationship Specialty Start Date End Date Jewel Loredo MD [address] [place] [address] PCP - General Internal Medicine 07/13/19 documented as of this encounter
--- OUTSIDE RECORDS SUMMARY | 2024-05-12 15:58 | XMS_ITS | Encounter Summary ---
Author Organization [employer] Address 75 [facility] 7 [place] [address] Care Team Providers Care Glue Mixer Name Role Phone Jewel Loredo MD Primary Care Prov ider Reason for Visit * Reason Onset Date Comments Call Back Request 04/04/2023 Encounter Details Date Type Department Care Team ([facility] st Contact Info) Description 04/04/2023 Telephone [facility] MEDICINE [address] [place] [address] Jewel Loredo MD [address] [place] [phone] Call Back Request Social History Tobacco Use [...] with previous pcp. Please contact pt at [phone]. * Telephone Encounter - Prasad Simpson - 04/04/2023 12:50 PM EST Tc from pt requesting Cortizone injection. Pt stated has had injection before with previous pcp. Please contact pt at [phone]. documented in this encounter Plan of Treatment Upcoming Encounters Date Type Department Care Team (Late st Contact Info) Description 05/24/2024 8:45 AM EDT Telemedicine [facility] MED & PEDS [address] [place] [address] Jewel Loredo MD [address] [place] [address] documented as of this encounter Visit Diagnoses Not on filedocumented in this encounter Additional Health Concerns Assessment Noted Time PHQ-9 Depression Total Score: 0 05/18/19 23 9:56 AM EDT documented as of this encounter Care Teams Glue Mixer Relationship Specialty Start Date End Date Jewel Loredo MD [address] [place] [address] PCP - General Internal Medicine 07/13/19 documented as of this encounter
--- OUTSIDE RECORDS SUMMARY | 2024-05-12 15:58 | XMS_ITS | Clinical Summary ---
Author Organization [employer] Address 75 [facility] 7t [place] [address] Care Team Providers Care Wheel And Axle Inspector Name Role Phone Jewel Loredo MD Primary [...] with right-sided sciatica 05/17/2022 Assessment & Plan (04/22/2024 10:24 AM EST): Chronic low back pain, patient will benefit from shower chair to help her avoiding a fall in the bathtub, will send script Patient will also benefit from temporary handicap placard, told patient to leave it at medical records for review Assessment & Plan (02/07/2023 9:57 AM EST): [...] Encounters Date Type Department Care Team Description 05/11/2024 Telephone [facility] MEDICINE [address] [place] [address] Jewel Loredo MD 04/30/2024 Population Health Risk Score Community [facility] (C[facility]) Department [address] [phone] Provider, Population Health Generic 04/22/2024 10:15 AM EST Telemedicine [facility] MED & PEDS [address] [place] [address] Jewel Loredo MD Chronic bilateral low back pain with right-sided sciatica (Primary Dx) 04/22/2024 Travel 04/20/2024 Telephone [facility] MED & PEDS [address] [place] [address] Jewel Loredo MD chart prep 04/15/2024 10:45 AM EST Office Visit [facility] MED [facility] PEDS [address] [place] [address] Jennifer Arroyo MD Chronic bilateral low back pain with right-sided sciatica (Primary Dx) 04/15/2024 Telephone [facility] MED [facility] PEDS [address] [place] [address] Jewel Loredo MD 04/15/2024 Travel 04/15/2024 Telephone [facility]ED[facility] [address] [place] [address] Jewel Loredo MD Walk-In 03/16/2024 Telephone [facility]ED[facility] [address] [place] [address] Jewel Loredo MD 03/02/2024 Telephone [facility] MED [facility] PEDS [address] [place] [address] Jewel Loredo MD No Show 02/24/2024 Patient Outreach [facility] MED & PEDS [address] [place] [address] Jewel Loredo MD Pre-visit Planning 02/13/2024 Telephone [facility] MED [facility] PEDS [address] [place], [place] [phone] Jewel Loredo MD CX APPOINTMENT 02/13/2024 Travel 02/12/2024 Telephone [facility] MEDICINE [address] [place], [place] [phone] Jewel Loredo MD Nurse Triage from Last [...] Info) Description 05/24/2024 8:45 AM EDT Telemedicine [facility] CHC MED & PEDS [address] [place] [address] Jewel Loredo MD [address] [place], [place] [phone] Health Maintenance Due Date Last Done Comments [...] 10/28/2024 10/29/2023, 10/29/19 24 Mammogram 02/20/2025 02/20/2023, 04/18, 10/16/2021, Additional history exists Tobacco Screening 04/15/2025 04/15/2024 Colonoscopy 07/03/2025 07/04/2015 Colorectal Cancer Screening 07/03/2025 DTaP/Tdap/Td Vaccines (2 - Td or Tdap) 01/01/2026 01/02/2016, 06/01/2009 Lipid Panel 04/16/2029 04/16/2024, 11/18, 06/28/2022, Additional history exists RSV Patients and Patients Aged 60 years [...] Procedure Name Priority Date/Time Associated Diagnosis Comments TSH W/REFLEX TO FT4 Routine 04/16/2024 1 0:44 AM EST Essential hypertension HEMOGLOBIN A1C Routine 04/16/2024 10:44 AM EST Essential hypertension LIPID PANEL, STANDARD Routine 04/16/2024 10:44 AM EST Essential hypertension COMPREHENSIVE METABOLIC PANEL Routine 04/16/2024 10:44 AM EST Essential hypertension CBC WITH AUTO DIFFERENTIAL Routine 04/16/2024 10:44 AM EST Essential hypertension BI MAMMOGRAM DIAGNOSTIC TOMOSYNTHESIS BILATERAL Routine 02/20/2023 11:48 AM EST HEPATITIS C AB W/REFL TO HCV RNA, QN, PCR Routine 06/28/2022 12:12 PM EDT Primary hypertension HIV 1/2 ANTIGEN/ANTIBODY, FOURTH GENERATION W/RFL Routine 01/02/2021 9:50 AM EST BITEWING - SINGLE RADIOGRAPHIC IMAGE Routine 05/20/2016 12:00 AM EDT HM COLONOSCOPY Routine 07/04/2015 3:56 PM EDT from Last 3 Months or Most Recently Relevant to Health Maintenance Results * TSH W/Reflex to FT4 (04/16/2024 10:44 AM EST) TSH reflex Free T4 1.20 0.32 - 4.0 uIU/mL [facility] Blood Venous blood specimen / Unknown 04/16/2024 10:44 AM EST 04/16/2024 2:33 PM EST us Jewel Purcell MD LAB BLOOD ORDERABL ES Final Result [facility] [address] [place] [address] [phone] * (ABNORMAL) CBC auto differential (04/16/2024 10:44 AM EST) White Blood Count 7.7 4.8 - 10.8 X10*3/uL [facility] Red Blood Count 4.96 4.20 - 5.50 X10*6/uL [facility] Hemoglobin 13.6 12.0 - 16.0 g/dl [facility] Hematocrit 41.3 37.0 - 47.0 % [facility] Mean Corpuscular Volume 83.3 80.0 - 98.0 fL [facility] Mean Corpuscular Hemoglobin 27.4 27.0 - 33.0 pg [facility] Mean Corpuscular HGB Conc 32.9 31.0 - 35.0 g/dl [facility] Red Cell Distribution Width 13.2 11.0 - 16.0 % [facility] Platelet Count 198 160 - 400 X10*3/uL [facility] Mean Platelet Volume 12.5(H) 9.4 - 12.3 fL [facility] Neutrophils Percent Auto 49.3 45 - 73 % [facility] Imm Gran Pct Auto 0.4 0.0 - 0.4 % [facility] Lymphocytes Percent Auto 40.4(H) 20 - 40 % [facility] Monocytes Percent Auto 7.7 2 - 11 % [facility] Eosinophils Percent Auto 1.7 0 - 4 % [facility] Basophils Percent Auto 0.5 0 - 2 % [facility] NRBC Pct Auto 0.0 0.0 - 0.2 /100WBC [facility] Neutrophils Absolute Auto 3.8 2.0 - 8.3 x10*3/uL [facility] Imm Gran Abs Auto 0.03 0.00 - 0.03 X10*3/uL [facility] Lymphocytes Absolute Auto 3.1 1.2 - 4.9 X10*3/uL [facility] Monocytes Absolute Auto 0.6 0.1 - 1.2 X10*3/uL [facility] Eosinophils Absolute Auto 0.1 0.0 - 0.4 X10*3/uL [facility] Basophils Absolute Auto 0.0 0.0 - 0.2 X10*3/uL [facility] NRBC Abs Auto 0.000 0.0 - 0.012 X10*3/uL [facility] Blood Venous blood specimen / Unknown 04/16/2024 10:44 AM EST 04/16/2024 2:39 PM EST Jewel Purcell MD LAB BLOOD ORDERABL ES Final Result Performing Organization Address [facility] Co de Phone Number [facility] [address] [place] [phone] * Hemoglobin A1c (04/16/2024 10:44 AM EST) Hemoglobin A1c 5.6 <6.0 % [facility] Comment:Hemoglobin A1C Refer ence Range Adults: 4.8 - 6.0 % Non diabetic: < 6.0 % Goal: < 7.0 %Additional Action Suggested: > 8.0 %Note: Hemoglobin A1c results are invalid for patients with abnormal amounts of HbF. Blood transfusions may impact the HbA1c concentration in the patient sample. Estimated Average Glucose 114 mg/dL [facility] Comment:eAG = Estimated ave rage glucose which is %A1C expressed asaverage glucose, using the formula of the R7O-XmshigpQjawlec Glucose study (ADAG), Diabetes Care, Vol.31,#8,2007 Blood Venous blood specimen / Unknown 04/16/2024 10:44 AM EST 04/16/2024 2:39 PM EST Jewel Purcell MD LAB BLOOD ORDERABL ES Final Result Performing Organization Address [facility] Co de Phone Number [facility] [address] [place] [phone] * Lipid Panel, Standard (04/16/2024 10:44 AM EST) Triglycerides 138 <150 mg/dL [facility] Comment:Desirable Triglyceri de: less than 150 mg/dLBorderline High Triglyceride 150-199 mg/dLHigh Triglyceride: 200-499 mg/dLVery High Triglyceride: greater than or equal to 5OO mg/dL Cholesterol 172 <200 mg/dL [facility] Comment:Desirable Cholestero l: less than 200 mg/dLBorderline High Cholesterol: 200-239 mg/dLHigh Cholesterol: greater than 239 mg/dL LDL Cholesterol Calculated 99 <100 mg/dL [facility] Comment:Desirable LDL: less than 100 mg/dLNear Optimal/Above Optimal LDL: 110- 129 mg/dLBorderline High LDL: 130-159 mg/dLHigh LDL: 160-189 mg/dLVery High LDL: greater than or equal to 190 mg/dL HDL Cholesterol 46 >40 mg/dL [facility] Comment:Desirable HDL: great er than 40 mg/dL Note: This HDL assay may give artificially low results in patients with liver disease. Blood Venous blood specimen / Unknown 04/16/2024 10:44 AM EST 04/16/2024 2:33 PM EST us Jewel Purcell MD LAB BLOOD ORDERABL ES Final Result [facility] [address] [place] [address] [phone] * (ABNORMAL) Comprehensive Metabolic Panel (04/16/2024 10:44 AM EST) Sodium 141 135 - 145 mmol/L [facility] Potassium 3.3 3.3 - 5.1 mmol/L [facility] Chloride 104 96 - 108 mmol/L [facility] Carbon Dioxide 26 22 - 29 mmol/L [facility] Anion Gap 14 12 - 20 [facility] Urea Nitrogen (BUN) 16 9 - 16 mg/dL [facility] Creatinine, Serum 0.65 0.5 - 1.4 mg/dL [facility] Estimated Glomerular Filt Rate >60 [facility] Comment:Chronic Kidney Disea se: Estimated GFR < 60 mL/min/1.64w3Otksfo Kidney Disease: Estimated GFR < 15 mL/min/1.73m2 Glucose 86 60 - 115 mg/dL [facility] Calcium 9.4 8.4 - 10.2 mg/dL [facility] Bilirubin, Total 0.4 0.0 - 1.0 mg/dL [facility] Aspartate Amino Transferase 37(H) 5 - 31 U/L [facility] Alanine Aminotransferase 41(H) 0 - 31 U/L [facility] Total Protein 7.6 6.5 - 8.0 g/dL [facility] Albumin Level 4.0 3.5 - 5.0 g/dL [facility] Alkaline Phosphatase 104 39 - 117 U/L [facility] Blood Venous blood specimen / Unknown 04/16/2024 10:44 AM EST 04/16/2024 2:33 PM EST Jewel Purcell MD LAB BLOOD ORDERABL ES Final Result Performing Organization Address City/State/[facility] Co de Phone Number [facility] [address] [place] [phone] * BI Mammogram Diagnostic Tomosynthesis Bilateral (02/20/2023 11:48 AM EST) Anatomical Region Laterality Modality Breast Bilateral Mammography 02/20/2023 11:4 8 AM EST Narrative 02/20/2023 1:05 PM EST ? [facility] [place] ? [address] ?[place] [address] ? Mammography Report ? Signed ? Patient: Sue,Inessa ?MR#: [id number] ?? 0 ? : 1965 ?Acct:[id number] ? Age/Sex: 57 / F ?ADM Date: /04/24 ? Loc: HO.MAMMO ? Attending Dr: Jewel Purcell MD ? Ordering Physician: Jewel Loredo MD ?Res ?? ults: 2Benign Findings ? Date of Service: 02/20/23 ?Follow Up: 1 Year From Orig ?? inal Mammogram ? Procedure(s): MM tomosynthesis diagnostic BI ?? Accession Number(s): [id number] ? cc: Jewel Loredo MD ? EXAMINATION: [...] 1301 ? DD/ 1148 ? TD/TT: ? Professor Of Special Education: ? Procedure Note Alexandrea, Blanca - 02/20/2023 [facility] [address] [place], [place] [address] Mammography Report Signed Patient: Nelda Rogers#: [id number] 0 : 1965Acct:[id number] Age/Sex: 57 / FADM Date: 02/20/23 Loc: [facility] Attending Dr: Jewel Purcell MD Ordering Physician: Jewel Loredo ults: 2Benign Findings Date of Service: 02/20/23Follow Up: 1 Year From Orig ina Mammogram Procedure(s): MM tomosynthesis diagnostic BI Accession Number(s): [id number] cc: Jewel Loredo MD EXAMINATION: MM DIAGNOSTIC [...] in OV> 02/20/23 1301 DD/ 1148 TD/TT: Professor Of Special Education: Jewel Purcell MD IMG BI PROCEDURES Final Result * Hepatitis C Antibody with Reflex to HCV, RNA, Quantitative, Real-Time PCR (06/28/2022 12:12 PM EDT) Hepatitis C Antibody NON-REACT LUCRECIA NON-REACT LUCRECIA [facility] Index 0.11 <1.00 [facility] Comment: HCV antibody was non-reactive. There is no laboratory evidence of HCV infection. In most cases, no further action is required. However, if recent HCV exposure is suspected, a test for HCV RNA (test code 17935) is suggested. For additional information please refer to http://education.[employer]/faq/KEG40b4 (This link is being provided for informational/ educational purposes only.) Blood Venous blood specimen / Unknown 06/28/2022 12:12 PM EDT 06/28/2022 12:13 PM EDT Narrative [facility] - 06/29/2022 6:26 AM EDT FASTING:NO FASTING: NO Jewel Purcell MD LAB BLOOD ORDERABL ES Final Result [facility] [address], [place] [address] [facility] [address] [place] [address] * HIV 1/2 ANTIGEN/ANTIBODY,FOURTH GENERATION W/RFL (01/02/2021 9:50 AM EST) HIV-1/2 ANTIGEN AND ANTIBODIES, 4TH GENERATION W/ REFLEX NON-REACT LUCRECIA NON-REACT LUCRECIA [facility] Comment: HIV-1 antigen and HIV-1/HIV-2 [...] ? For additional information please refer to http://[employer]/faq/KNS233 (This link is being provided for informational/ educational purposes only.) ? The performance of this assay has not been clinically validated in patients less than 2 years old. ?? 01/02/2021 9:50 AM EST Shikha Edmondson CNM LAB BLOOD ORDERABLES Annemarie gooden Result [facility] [address] * Hm Colonoscopy (07/04/2015 3:56 PM EDT) Historical Provider HEALTH MAINTENANCE Final Result from Last 3 Months or Most Recently Relevant to Health Maintenance [place] [address] [place] [address] C[facility] MEDICAID STAND ADULT Care Teams Wheel And Axle Inspector Relationship Specialty Start Date End Date Jewel Loredo MD [address] [place] [phone] PCP - General Internal Medicine 07/13/19
--- OUTSIDE RECORDS SUMMARY | 2024-05-12 15:58 | XMS_ITS | Patient Health Record ---
Author Organization [facility] Address [address] [place], [place] [phone] Care Team Providers Care Dermatologist And Dermatopathologist Name Role Phone [facility] Primary Care Provider Un available Reason For Referral No Information Plan Of Treatment No Information Insurance Providers Payer Name Payer Address Payer Phone Subscriber Number Group Number Insured Name Patient Relationship to Insured Coverage Start Date Coverage End Date [facility] [employer] [address] [place] [phone] [phone] [id number] Sue Wylie Self - patient is the insured 2
--- OUTSIDE RECORDS SUMMARY | 2024-05-12 15:58 | XMS_ITS | Encounter Summary ---
Author Organization [employer] Address 75 [facility] 7t [place] [address] Care Team Providers Care Fbi Profiler Name Role Phone Jewel Loredo MD Primary [...] Info) Description 05/24/2024 8:45 AM EDT Telemedicine [facility] MED & PEDS [address] [place] [address] Jewel Loredo MD [address] [place] [address] documented as of this encounter Visit Diagnoses Not on filedocumented in this encounter Additional Health Concerns Assessment Noted Time PHQ-9 Depression Total Score: 2 10/29/19 24 9:36 AM EDT documented as of this encounter Care Teams Fbi Profiler Relationship Specialty Start Date End Date Jewel Loredo MD [address] [place] [address] PCP - General Internal Medicine 07/13/19 documented as of this encounter
--- OUTSIDE RECORDS SUMMARY | 2024-05-12 15:58 | XMS_ITS | Encounter Summary ---
Author Organization [employer] Address 75 [facility] 7 [place] [address] Care Team Providers Care Potato Chip Processing Supervisor Name Role Phone Jewel Loredo MD Primary Care Prov ider Reason for Visit * Reason Onset Date Comments Walk-In 04/15/2024 Encounter Details Date Type Department Care Team ([facility] st Contact Info) Description 04/15/2024 Telephone [facility]S [address] [place], [place] [phone] Jewel Loredo MD [address] [place] [address] Walk-In Social History Tobacco Use Types Packs/Day [...] Info) Description 05/24/2024 8:45 AM EDT Telemedicine [facility] [address] [place] [address] Jewel Loredo MD [address] [place] [address] documented as of this encounter Visit Diagnoses Not on filedocumented in this encounter Additional Health Concerns Assessment Noted Time PHQ-9 Depression Total Score: 2 10/29/19 24 9:36 AM EDT documented as of this encounter Care Teams Potato Chip Processing Supervisor Relationship Specialty Start Date End Date RogersJewel Chan MD [address] [place] [phone] PCP - General Internal Medicine 07/13/19 documented as of this encounter
--- OUTSIDE RECORDS SUMMARY | 2024-05-12 15:59 | XMS_ITS | Encounter Summary ---
Author Organization [employer] Address 75 [facility] 7t [place] [address] Care Team Providers Care Social Economist Name Role Phone Jewel Loredo MD Primary Care Prov ider Encounter Details Date Type Department Care Team (Latest Contact Info) Description 04/22/2024 Travel Social History Tobacco Use Types Packs/Day [...] Info) Description 05/24/2024 8:45 AM EDT Telemedicine [facility] MED & PEDS [address] [place] [address] Jewel Loredo MD [address] [place] [address] documented as of this encounter Visit Diagnoses Not on filedocumented in this encounter Additional Health Concerns Assessment Noted Time PHQ-9 Depression Total Score: 2 10/29/19 24 9:36 AM EDT documented as of this encounter Care Teams Social Economist Relationship Specialty Start Date End Date Jewel Loredo MD [address] [place] [address] PCP - General Internal Medicine 07/13/19 documented as of this encounter
--- OUTSIDE RECORDS SUMMARY | 2024-05-12 15:59 | XMS_ITS | Encounter Summary ---
Author Organization [employer] Address [address] [facility] 7 [place] [address] Care Team Providers Care Manager Union Name Role Phone Jewel Loredo MD Primary Care Prov ider Reason for Visit * Reason Onset Date Comments Durable Medical Equipment 07/31/2023 Encounter Details Date Type Department Care Team (Late st Contact Info) Description 07/31/2023 Telephone [facility] MEDICINE [address] [place] [address] Jewel Loredo MD [address] [place] [phone] Durable Medical Equipment Social History Tobacco Use Types Packs/Day Years [...] is your housing situation today? I have [place] tobias 10/24/[address] you [...] encounter Miscellaneous Notes * Telephone Encounter - Ozzie Aly - 05/11/2024 8:15 AM EDT Tc from pt requesting status of DME script pt states that she did the Appt and is waiting to receive the Seat. Contact pt at [phone] * Telephone Encounter - Teena Godoy - 02/12/2024 1:39 PM EST Tc from pt requesting a call back in regards toilet seat. Need to schedule an appointment to receive a prescription for raised toilet seat. Please contact (UKRAINIAN) * Telephone Encounter - Ioana Morel RN - 02/02/2024 11:58 AM EST Per review of chart, pt needs to be seen for supporting documentation in order to prescribe raised toilet seat. * Telephone Encounter - Rudy Tsang - 02/02/2024 11:19 AM EST Tc from pt requesting status on DME , securities underwriter informed previous message and gave #. Pt stated they called a week ago and was advised they did not receive any script. Please contact pt at [phone] Ug[place] * Telephone Encounter - Maite Ocasio LPN - 01/29/2024 10:23 AM EST Call was return No answer pt Is advise to follow up with L&C [phone] * Telephone Encounter - Tamiko Velez - 01/27/2024 11:34 AM EST Tc from pt returning call regarding status on DME request. * Telephone Encounter - Maite Ocasio LPN - 09/23/2023 3:11 PM EDT I returne pt called no answer if pt need status pt cn follow up with L&C * Telephone Encounter - Aaron Ruano - 09/23/2023 2:03 PM EDT Tc from pt requesting status on Rx * Telephone Encounter - Sandra Lakhani MD - 08/01/2023 12:33 PM EDT Re commode, yes, it can be rx. The 02/07/23 TV note states that patient is at risks of falls. PCP can fu when he returns but rx can be started * Telephone Encounter - Maite Ocasio LPN - 07/31/2023 10:26 AM EDT Please review message below. Noticed pt no showed pt advise. Tc from pt requesting DME -Toilet Commode For Room * Telephone Encounter - Letty Bagley - 07/31/2023 10:15 AM EDT Tc from pt requesting DME -Toilet Commode For Room documented in this encounter Plan of Treatment Upcoming Encounters Date Type Department Care Team (Late st Contact Info) Description 05/24/2024 8:45 AM EDT Telemedicine [facility] MED & PEDS [address] [place] [address] Jewel Loredo MD [address] [place] [address] documented as of this encounter Visit Diagnoses Not on filedocumented in this encounter Additional Health Concerns Assessment Noted Time PHQ-9 Depression Total Score: 0 05/18/19 23 9:56 AM EDT documented as of this encounter Care Teams Manager Union Relationship Specialty Start Date End Date Jewel Loredo MD [address] [place] [address] PCP - General Internal Medicine 07/13/19 documented as of this encounter
--- OUTSIDE RECORDS SUMMARY | 2024-05-12 15:59 | XMS_ITS | Encounter Summary ---
Author Organization [employer] Address [address] [facility] 7t [place] [address] Care Team Providers Care Dental Insurance Biller Name Role Phone Jewel Loredo MD Primary Care Prov ider Encounter Details Date Type Department Care Team (Late st Contact Info) Description 05/11/2024 Telephone [facility] MEDICINE [address] [place] [address] Jewel Loredo MD [address] [place] [address] Social History Tobacco Use Types Packs/Day Years [...] Upcoming Encounters Date Type Department Care Team ([facility] st Contact Info) Description 05/24/2024 8:45 AM EDT Telemedicine [facility] MED & PEDS [address] [place] [address] Jewel Loredo MD [address] [place] [address] documented as of this encounter Visit Diagnoses Not on filedocumented in this encounter Additional Health Concerns Assessment Noted Time PHQ-9 Depression Total Score: 2 10/29/19 24 9:36 AM EDT documented as of this encounter Care Teams Dental Insurance Biller Relationship Specialty Start Date End Date Jewel Loredo MD [address] [place] [address] PCP - General Internal Medicine 07/13/19 documented as of this encounter
--- OUTSIDE RECORDS SUMMARY | 2024-05-12 15:59 | XMS_ITS | Encounter Summary ---
Author Organization [employer] Address [address] [facility] 7t [place] [address] Care Team Providers Care Reimbursement Liaison Name Role Phone Jewel Loredo MD Primary Care Prov ider Encounter Details Date Type Department Care Team (Late st Contact Info) Description 04/22/2024 10:15 AM EST Telemedicine [facility] MED & PEDS [address] [place], [place] [id number] Jewel Loredo MD [address] [place] [address] Chronic bilateral low back pain with right-sided [...] AM EDT documented as of this encounter Progress Notes * Teena Calderon MA - 04/22/2024 10:15 AM EST * Jewel Purcell MD - 04/22/2024 10:15 AM EST Subjective Patient ID: Inessa Rogers is a 59 y.o. female who presents for No chief complaint on file.. HPI Patient was scheduled for a televisit for DME request and handicap placard Review of Systems Constitutional: Negative for chills, fatigue and fever. Respiratory: Negative for cough and shortness of breath. Cardiovascular: Negative for chest pain and palpitations. Musculoskeletal: Positive for arthralgias, back pain and gait problem. Objective Physical Exam Neurological: General: No focal deficit present. Mental Status: She is oriented to person, place, and time. Psychiatric: Mood and Affect: Mood normal. Behavior: Behavior normal. Assessment/Plan Problem List Items Addressed This Visit Chronic bilateral low back pain with right-sided sciatica - Primary Chronic low back pain, patient will benefit from shower chair to help her avoiding a fall in the bathtub, will send script Patient will also benefit from temporary handicap placard, told patient to leave it at medical records for review documented in this encounter Miscellaneous Notes * Assessment & Plan Note - Jewel Purcell MD - 04/22/2024 10:24 AM ESTAssociated Problem(s): Chronic bilateral low back pain with right-sided sciatica Chronic low back pain, patient will benefit from shower chair to help her avoiding a fall in the bathtub, will send script Patient will also benefit from temporary handicap placard, told patient to leave it at medical records for review documented in this encounter Plan of Treatment Upcoming Encounters Date Type Department Care Team (Late st Contact Info) Description 05/24/2024 8:45 AM EDT Telemedicine [facility] MED & PEDS [address] [place] [address] Jewel Loredo MD [address] [place] [address] documented as of this encounter Visit Diagnoses Diagnosis Chronic bilateral low back pain with right-sided sciatica- Primary documented in this encounter Additional Health Concerns Assessment Noted Time PHQ-9 Depression Total Score: 2 10/29/19 24 9:36 AM EDT documented as of this encounter Care Teams Reimbursement Liaison Relationship Specialty Start Date End Date Jewel Loredo MD [address] [place] [address] PCP - General Internal Medicine 07/13/19 documented as of this encounter
--- OUTSIDE RECORDS SUMMARY | 2024-05-12 15:59 | XMS_ITS | Encounter Summary ---
Author Organization [employer] Address [address] [facility] [address] 7[address] [place] [address] Care Team Providers Care Glue Spreading Machine Operator Name Role Phone Jewel Loredo MD Primary Care Prov ider Encounter Details Date Type Department Care Team (Late st Contact Info) Description 05/30/2023 Orders Only [facility] MEDICINE [address] [place] [address] ProviderDenisha MD Social History Tobacco Use Types [...] Info) Description 05/24/2024 8:45 AM EDT Telemedicine [facility] MED & PEDS [address] [place] [address] Jewel Loredo MD [address] [place] [address] documented as of this encounter Procedures Procedure [...] as of this encounter Care Teams Glue Spreading Machine Operator Relationship Specialty Start Date End Date Jewel Loredo MD [address] [place] [address] PCP - General Internal Medicine 07/13/19 documented as of this encounter
--- OUTSIDE RECORDS SUMMARY | 2024-05-12 15:59 | XMS_ITS | Encounter Summary ---
Author Organization [employer] Address [address] [facility] [address] [place] [address] Care Team Providers Care Shipping Associate Name Role Phone Jewel Loredo MD Primary Care Prov ider Reason for Visit * Reason Onset Date Comments chart prep 04/20/2024 Encounter Details Date Type Department Care Team ([facility] st Contact Info) Description 04/20/[address] [facility] MED & PEDS [address] [place] [address] Jewel Loredo MD [address] [place] [address] chart prep Social History Tobacco Use Types Packs/Day Years [...] Telephone Encounter - Teena Calderon [place] - 04/20/2024 4:26 PM EST Chart Prep Labs: done Images: not done Vaccines due: yes Referrals: pending appt Screenings: none Overdue care gaps: Sbirt documented in this encounter Plan of Treatment Upcoming Encounters Date Type Department Care Team (Late st Contact Info) Description 05/24/2024 8:45 AM EDT Telemedicine [facility] MED & PEDS [address] [place] [address] Jewel Loredo MD [address] [place] [address] documented as of this encounter Visit Diagnoses Not on filedocumented in this encounter Additional Health Concerns Assessment Noted Time PHQ-9 Depression Total Score: 2 10/29/19 24 9:36 AM EDT documented as of this encounter Care Teams Shipping Associate Relationship Specialty Start Date End Date Jewel Loredo MD [address] [place] [address] PCP - General Internal Medicine 07/13/19 documented as of this encounter
--- OUTSIDE RECORDS SUMMARY | 2024-05-12 15:59 | XMS_ITS | Encounter Summary ---
Author Organization [employer] Address [address] [facility] 7t [place] [address] Care Team Providers Care Mattress Filling Machine Tender Name Role Phone Jewel Loredo MD Primary Care Prov ider Encounter Details Date Type Department Care Team (Late st Contact Info) Description 04/30/2024 Population Health Risk Score [facility] ([facility] Department [address] [id number] Provider, Population Health Generic Social History Tobacco Use Types Packs/Day Years [...] Info) Description 05/24/2024 8:45 AM EDT Telemedicine [facility] MED & PEDS [address] [place] [address] Jewel Loredo MD [address] [place] [address] documented as of this encounter Visit Diagnoses Not on filedocumented in this encounter Additional Health Concerns Assessment Noted Time PHQ-9 Depression Total Score: 2 10/29/19 24 9:36 AM EDT documented as of this encounter Care Teams Mattress Filling Machine Tender Relationship Specialty Start Date End Date Jewel Loredo MD [address] [place] [address] PCP - General Internal Medicine 07/13/19 documented as of this encounter
== END 2024-05-12 13:25 | disposition home or self-care (01) ==
LOC: HO.MAMMO 13:24
PROVIDERS: PCP Internal Medicine; Visit Provider Internal Medicine
DX: Z12.31 Encounter for screening mammogram for malignant neoplasm of breast (principal)
CPT/HCPCS: 77063; 77067

== ENCOUNTER → 2024-05-12 13:45 | Outpatient (BNV) | payer MEDICAID, SELFPAY | PROVIDERS: PCP Internal Medicine; Visit Provider Internal Medicine | DX: Z12.31 Encounter for screening mammogram for malignant neoplasm of breast (principal) | CPT/HCPCS: 77063; 77067 ==

== ENCOUNTER 2025-02-15 08:35 | Outpatient (REF) | payer MEDICAID, SELFPAY ==
--- OUTSIDE RECORDS SUMMARY | 2025-02-15 10:20 | XMS_ITS | Encounter Summary ---
Author Organization [employer] Address [address] [facility] 7 [place] [address] Care Team Providers Care Network Operations Technician Name Role Phone Jewel Loredo MD Primary Care Prov ider Reason for Visit * Reason Onset Date Comments Call Back Request 04/04/2023 Encounter Details Date Type Department Care Team ([facility] st Contact Info) Description 04/04/2023 Telephone [facility] MEDICINE [address] [place] [address] Jewel Loredo MD [address] [place] [address] Call Back Request Social History Tobacco Use [...] with previous pcp. Please contact pt at [phone]. * Telephone Encounter - Prasad Simpson - 04/04/2023 12:50 PM EST Tc from pt requesting Cortizone injection. Pt stated has had injection before with previous pcp. Please contact pt at [phone]. documented in this encounter Plan of Treatment Upcoming Encounters Date Type Department Care Team (Late st Contact Info) Description 03/10/2025 1:45 PM EST Telemedicine [facility] MED & PEDS [address] [place] [address] Jewel Loredo MD [address] [place] [address] documented as of this encounter Visit Diagnoses Not on filedocumented in this encounter Additional Health Concerns Assessment Noted Time PHQ-9 Depression Total Score: 0 05/18/19 23 9:56 AM EDT documented as of this encounter Care Teams Network Operations Technician Relationship Specialty Start Date End Date Jewel Loredo MD [address] [place] [address] PCP - General Internal Medicine 07/13/19 documented as of this encounter
--- OUTSIDE RECORDS SUMMARY | 2025-02-15 10:20 | XMS_ITS | Clinical Summary ---
Author Organization [employer] Address [address] [facility] 7t [place] [address] Care Team Providers Care Electronics Hardware Design Engineer Name Role Phone Jewel Loredo MD Primary Care Prov ider Allergies Active Allergy Reactions Criticality Noted Date Comments Lisinopril Cough,Angioedema 02/15/2022 Penicillins Rash Low 02/15/2022 Zolpidem 01/27/2023 Other reaction(s): confusion Medications FLUoxetine (PROzac) 40 MG capsule Take 40 mg by mouth Once per day. Active meloxicam (Mobic) 7.5 MG tablet Take 1 tablet (7.5 mg) by mouth 2 times daily. 60 tablet 11 04/15/19 25 026 Active losartan-hydro CHLOROthiazide (Hyzaar) 100-25 MG tablet TAKE 1 TABLET BY MOUTH EVERY MORNING 90 tablet 3 05/18/19 25 Active Neomycin-Polym yxin-HC 1 % solutionIndica tions:Right ear pain Administer 3 drops into affected ear(s) 4 times daily. 10 mL 10/12/19 25 Active acetaminophen (Tylenol Extra Strength) 500 MG tabletIndicati ons:Right ear pain Take 2 tablets (1,000 mg) by mouth every 8 (eight) hours if needed for mild pain. 90 tablet 10/12/19 25 Active cetirizine (ZyrTEC) 10 MG tablet Take 1 tablet (10 mg) by mouth if needed each day for rhinitis. 30 tablet 3 01/07/20 25 026 Active fluticasone (Flonase) 50 MCG/ACT nasal spray Administer 2 sprays into each nostril if needed each day for rhinitis. Shake gently. Before first use, prime pump. After use, clean tip and replace cap. 16 g 3 01/07/20 25 026 Active topiramate (Topamax) 50 MG tablet Take 1 tablet (50 mg) by mouth 2 times daily. 60 tablet 1 02/02/20 Active magnesium oxide (Mag-Ox) 400 mg tablet Take 1 tablet (400 mg) by mouth Once per day. 90 tablet 1 02/02/20 Active Omeprazole 20 MG tablet delayed-releas e Take 1 tablet (20 mg) by mouth Once per day. 90 tablet 02/02/20 Active cyclobenzaprin e (Flexeril) 10 MG tablet Take 1 tablet (10 mg) by mouth 3 times daily. 90 tablet 02/02/20 25 026 Active cyclobenzaprin e (Flexeril) 10 MG tablet Take 1 tablet (10 mg) by mouth 3 times daily for 10 days. 30 tablet 10/29/19 24 025 Discontinued azithromycin (Zithromax) 250 MG tabletIndicati ons:Right ear pain Take 2 tablets PO today then take 1 tablet PO daily for the next four days 6 tablet 01/07/20 25 025 Discontinued Active Problems Problem Noted Date Diagnosed Date Intractable chronic migraine with aura and without status migrainosus 02/01/2025 Assessment & Plan (02/01/2025 2:50 PM EST): Refers having episode almost daily, has been monitoring her blood pressure with adequate results, will start on topamax and magnesium, follow up in 1 month Urinary incontinence 10/11/2024 Acute pain of right shoulder 10/29/2023 Assessment [...] for gastric bypass eval Primary hypertension 06/28/2022 Assessment & Plan (10/13/2024 10:16 AM EDT): Controlled, keep low sodium diet and exercise as tolerated, keep bp log target <140/90, follow up in 3 months Screening for colon cancer 06/28/2022 Assessment & Plan (06/28/2022 1:05 PM EDT): Done in 2016 due in 10 years Low back pain 05/17/2022 Overview (10/11/2024): Hx of lumbar fusion with Dr Velarde Assessment & Plan (04/22/2024 10:24 AM EST): [...] cane Essential hypertension 04/08/2018 Assessment & Plan (02/01/2025 2:49 PM EST): Patient did not took her medication today, reinforced importance of medication adherance, follow up in 1 month Assessment & Plan (05/24/2024 11:17 AM EDT): Controlled, keep low sodium diet and exercise as tolerated, keep bp log, target <140/90 Assessment & Plan (10/29/2023 7:31 PM EDT): [...] sodium diet and exercise. Mood disorder 04/08/2018 Gastroesophageal reflux disease without esophagi tis 04/08/2018 H/O: hysterectomy 10/06/2017 Chronic low back pain 03/15/2015 Abnormal stress test 11/11/2013 Resolved Problems Problem Noted Date Diagnosed Date Resolved Date Right ear pain 10/11/2024 01/06/2025 Assessment & Plan (10/13/2024 10:16 AM EDT): Symptoms improving, told to finish antibiotics Encounters Date Type Department Care Team Description 02/01/2025 2:15 PM EST Office Visit [facility] [address] [place] [address] Jewel Loredo MD Essential hypertension (Primary Dx); Intractable chronic migraine with aura and without status migrainosus 02/01/2025 Travel 01/10/2025 Telephone [facility] [address] [place] [address] Jewel Loredo MD Nurse Triage 01/06/2025 10:20 AM EST Office Visit [facility] [address] [place] [address] Georgia Piedra DO Acute migraine (Primary Dx); Strep pharyngitis; Right ear pain 01/06/2025 Travel 01/06/2025 Telephone [facility] [address] [place] [address] Jewel Loredo MD Nurse Triage 12/28/2024 Telephone [facility] [address] [place], [place] [phone] Jewel Loredo MD 12/28/2024 Travel 12/27/2024 Telephone [facility] [address] [place], [place] [phone] Jewel Loredo MD Chart Prep from Last 3 Months Immunizations Immunization Administration Dates Next Due Influenza Injectable Quadriv alant Preservative Free IIV4 MDCK 01/22/2022,01/07/2020 Influenza injectable quadriv alent IIV4 with preservative 12/03/2018,11/28/2016,01/02/2016 Influenza injectable quadriv alent preservative free 11/02/2020,01/04/2018,03/15/2015 Influenza, IIV3, injectable 01/26/2014, 4,12/19/2011 Influenza, Recombinant, inje ctable, preservative free 11/17/2024 Influenza, seasonal, injecta ble, preservative free 10/29/2023 TD (adult), 2 Lf tetanus tox oid, preservative free, adsorbed 06/01/2009 Tdap 01/02/2016 Zoster, Recombinant 11/25/2018,09/04/2018 Social History Tobacco Use Types Packs/Day Years Used Date Smoking Tobacco: Never Smokeless Tobacco: Never Tobacco Cessation:Counseling Given: Not Answered Alcohol Use Standard Drinks/Week Comments Never 0 (1 standard drink = 0.6 oz pur e alcohol) Depression Answer Date Recorded Patient Health Questionnaire-9 Score 2 12/28/2024 Patient Health Questionnaire-9 Score 2 12/28/2024 Last PHQ-9: Questionnaire Data Not on file 1 02/28/2024 Housing Stability Answer Date Recorded What is your housing situation today? I have jrezy tobias 12/28/[address] you li ve. Do you have problems with any of the following? None of the above 12/28/2024 Food Insecurity Answer Date Recorded Within the past 12 months, y ou worried that your food would run out before you got money to buy more: Never True 12/28/2024 Within the past 12 months,th e food you bought just didn't last and you didn't have enough money to get more: Never True 12/2024 Transportation Answer Date Recorded In the past 12 months, has l ack of transportation kept you from medical appts, meetings, work or from getting things needed for daily living? No 12/28/2024 Utilities Answer Date Recorded In the past 12 months, has t he electric, gas, oil or water company threatened to shut off services in your home? No 12/28/2024 Depression Answer Date Recorded Patient Health Questionnaire-2 Score 2 12/28/2024 Internet Access Answer Date Recorded Internet Access Q1 Yes 12/28/2024 Internet Access Q2 Not on file 12/28/2024 Comments No Sex and Gender Information Value Date Recorded Sex Assigned at Female 12/17/2021 10:29 AM EDT Legal Sex Female 10:29 AM EDT Gender Identity Female 12/17/2021 10:29 AM EDT Sexual Orientation Choose not to disclose 2021 10:29 AM EDT Last Filed Vital Signs Vital Sign Reading Time Taken Comments Blood Pressure 158/81 02/01/2025 2:02 PM EST Pulse 82 02/01/2025 2:02 PM EST Temperature 36.6 C (97.8 F) 02/01/2025 2:02 PM EST Respiratory Rate 20 02/01/2025 2:02 PM EST Oxygen Saturation 96% 01/06/2025 10:38 AM EST Inhaled Oxygen Concentration - - Weight 92.5 kg (204 lb) 02/01/2025 2:02 PM EST Height 162.6 cm (5' 4 ) 02/01/2025 2:02 PM EST Body Mass Index 35.02 02/01/2025 2:02 PM EST Plan of Treatment Upcoming Encounters Date Type Department Care Team (Late st Contact Info) Description 03/10/2025 1:45 PM EST Telemedicine [facility] MED & PEDS [address] [place], [place] [phone] Jewel Loredo MD [address] [place] [address] Health Maintenance Due Date Last Done Comments CT Colonography 1967 Dental Oral Exam 1967 Dental Prophylaxis 1967 FIT DNA/Cologuard 1967 FIT 1967 FOBT 1965 Sigmoidoscopy 1967 Hepatitis B Vaccines (1 of 3 - 19+ 3-dose series) 1986 Pap Smear 1988 HPV/Cotest 1997 Pneumococcal Vaccine: 50+ Years (1 of 1 - PCV) 2017 Dental X-Ray: Bitewings 05/21/2017 05/20/2016 COVID-19 Vaccine ( season) 2024 03/17/2021, 07/19/2020, 06/20/2020 Colonoscopy 07/03/2025 07/04/2015 Colorectal Cancer Screening 07/03/2025 Alcohol/Substance Use Screening 10/13/2025 10/13/2024 Disability Screening 10/13/2025 10/13/2024 Dental X-Ray: Full Mouth 11/15/2025 11/14/2022 Depression Screening 12/28/2025 12/28/2024, 12/29/19 25 SDOH Screening 12/28/2025 12/28/2024 DTaP/Tdap/Td Vaccines (2 - Td or Tdap) 01/01/2026 01/02/2016, 06/01/2009 Tobacco Screening 01/06/2026 01/06/2025 Mammogram 05/12/2026 05/12/2024, 0105/2023, 02/20/2023, Additional history exists Lipid Panel 04/16/2029 04/16/2024, 11/18, 06/28/2022, Additional history exists RSV Patients and Patients Aged 60 years or older (1 - 1-dose 75+ series) 2042 Zoster Vaccines Completed 11/25/2018, 09/04/2018 HIV Screening Completed 01/02/2021 Hepatitis C Screening Completed 06/28/2022 Influenza Vaccine Completed 11/17/2024, , 01/22/2022, Additional history exists Cervical Cancer Screening Discontinued [...] patient's age to complete this topic Meningococcal B Vaccine Aged Out No l onger eligible based on patient's age to complete [...] Procedure Name Priority Date/Time Associated Diagnosis Comments POCT INFLUENZA A (ID NOW RAPID MOLECULAR) Routine 01/06/2025 10:58 AM EST Strep pharyngitis POCT RAPID COVID ANTIGEN Routine 01/06/2025 10:58 AM EST Strep pharyngitis POCT INFLUENZA B (ID NOW RAPID MOLECULAR) Routine 01/06/2025 10:57 AM EST Strep pharyngitis POC GUERIN ID NOW STREP A Routine 01/06/2025 10:56 AM EST Strep pharyngitis BI MAMMOGRAM SCREENING TOMOSYNTHESIS BILATERAL Routine 05/12/2024 1:45 PM EDT LIPID PANEL, STANDARD Routine 04/16/2024 10:44 AM EST Essential hypertension HEPATITIS C AB W/REFL TO HCV RNA, QN, PCR Routine 06/28/2022 12:12 PM EDT Primary hypertension HIV 1/2 ANTIGEN/ANTIBODY, FOURTH GENERATION W/RFL Routine 01/02/2021 9:50 AM EST BITEWING - SINGLE RADIOGRAPHIC IMAGE Routine 05/20/2016 12:00 AM EDT HM COLONOSCOPY Routine 07/04/2015 3:56 PM EDT from Last 3 Months or Most Recently Relevant to Health Maintenance Results * POCT Rapid Influenza A GUERIN ID NOW (01/06/2025 10:58 AM EST) Influenza A Negative Negative, Indeterminate [facility] QC Media Lot # [id number] [facility] Lot# Expiration Date [facility] Swab 01/06/2025 10:5 8 AM EST Georgia Piedra DO POINT OF CARE TEST ENTER/DEANDRE T ORDERABLES Final Result Performing Organization Address [facility] Co de Phone Number [facility] [address] [place] [phone] * POCT Rapid Covid-19 BinaxNOW (01/06/2025 10:58 AM EST) Rapid COVID Ag Negative QC Media Lot # [id number] Lot# Expiration Date Swab 01/06/2025 10:5 8 AM EST Georgia Piedra DO POINT OF CARE TEST ENTER/DEANDRE T ORDERABLES Final Result * POCT Rapid Influenza B GUERIN ID NOW (01/06/2025 10:57 AM EST) Influenza B Negative Negative, Indeterminate [facility] QC Media Lot # [id number] [facility] Lot# Expiration Date [facility] Swab 01/06/2025 10:5 7 AM EST Georgia Piedra DO POINT OF CARE TEST ENTER/DEANDRE T ORDERABLES Final Result Performing Organization Address [facility]/ZIP Co de Phone Number [facility] [address] [place] [phone] * (ABNORMAL) POCT Rapid Strep A GUERIN ID NOW (01/06/2025 10:56 AM EST) Rapid Strep A Screen Positive( A) Negative, None Detected QC Media Lot # [id number] Lot# Expiration Date Swab 01/06/2025 10:5 6 AM EST Georgiapaulina Pipergeni DO POINT OF CARE TEST ENTER/DEANDRE T ORDERABLES Final Result * BI Mammogram Screening Tomosynthesis Bilateral (05/12/2024 1:45 PM EDT) Anatomical Region Laterality Modality Breast Bilateral Mammography 05/12/2024 1:45 PM EDT Narrative 05/21/2024 12:33 PM EDT [facility] [address] [place] [address] Mammography Report Signed Patient: Inessa Rogers MR#: [id number] 0 : 1965 Acct:[id number] Age/Sex: 59 / F ADM Date: 05/12/24 Loc: HO.MAMMO Attending Dr: Jewel Purcell MD Ordering Physician: Jewel Loredo MD Res ults: 2Benign Findings Date of Service: 05/12/24 Follow Up: 1 Year From [facility] ina Mammogram Procedure(s): MM tomosynthesis screening BI Accession Number(s): [id number] cc: Jewel Loredo MD EXAMINATION: MM SCREENING DIGITAL BREAST TOMOSYNTHESIS, BILATERAL CLINICAL INFORMATION: Screening. Asymptomatic. COMPARISON: Mammography: Comparison is made with available priors TECHNIQUE: Digital breast mammography with tomosynthesis is performed in both the craniocaudal and mediolateral oblique views along with computer-aided detection (CAD). FINDINGS: The breasts are heterogeneously dense, which may obscure small masses (ACR BI-RADS breast composition Category c). Bilateral reduction mammoplasty. There are no significant masses, abnormal calcifications, or other abnormalities. MM/MM tomosynthesis screening BI IMPRESSION: No mammographic evidence of malignancy. ASSESSMENT: BI-RADS BI-RADS 2 - Benign Findings RECOMMENDATION: Routine annual mammography screening. 1 year F/U This examination should not preclude the clinical evaluation of a suspicious palpable abnormality. This patient's information was entered into a reminder system with a target due date for their next mammogram. Electronically signed by: Kim Gabriel DO 05/21/2024 12:30 PM EDT RP Dictated By: Kim Gabriel DO Signed By: <Electronically signed by Kim Gabriel DO in OV> 05/21/24 1230 DD/ 1345 TD/TT: 05/12/24 1407 Railroad Brakeman: Procedure Note Donotuseinterpreter, Image - 05/21/2024 [facility] [address] [place] [address] Mammography Report Signed Patient: Inessa RogersMR#: [id number] 0 : 1965Acct:[id number] Age/Sex: 59 / FADM Date: 05/12/24 Loc: HO.MAMMO Attending Dr: Jewel Purcell MD Ordering Physician: Jewel Loredo ults: 2Benign Findings Date of Service: 05/12/24Follow Up: 1 Year From Orig ina Mammogram Procedure(s): MM tomosynthesis screening BI Accession Number(s): [id number] cc: Jewel Loredo MD EXAMINATION: MM SCREENING DIGITAL BREAST TOMOSYNTHESIS, BILATERAL CLINICAL INFORMATION: Screening. Asymptomatic. COMPARISON: Mammography: Comparison is made with available priors TECHNIQUE: Digital breast mammography with tomosynthesis is performed in both the craniocaudal and mediolateral oblique views along with computer-aided detection (CAD). FINDINGS: The breasts are heterogeneously dense, which may obscure small masses (ACR BI-RADS breast composition Category c). Bilateral reduction mammoplasty. There are no significant masses, abnormal calcifications, or other abnormalities. MM/MM tomosynthesis screening BI IMPRESSION: No mammographic evidence of malignancy. ASSESSMENT: BI-RADS BI-RADS 2 - Benign Findings RECOMMENDATION: Routine annual mammography screening. 1 year F/U This examination should not preclude the clinical evaluation of a suspicious palpable abnormality. This patient's information was entered into a reminder system with a target due date for their next mammogram. Electronically signed by: Kim Gabriel DO 05/21/2024 12:30 PM EDT Dictated By: Kim Gabriel DO Signed By: <Electronically signed by Kim Gabriel DO in OV> 05/21/24 1230 DD/ 1345 TD/TT: 05/12/24 1407 Railroad Brakeman: us Jewel Purcell MD IMG BI PROCEDURES Final Result * Lipid Panel, Standard (04/16/2024 10:44 AM EST) Triglycerides 138 <150 mg/dL [facility] Comment:Desirable Triglyceri de: less than 150 mg/dLBorderline High Triglyceride 150-199 mg/dLHigh Triglyceride: 200-499 mg/dLVery High Triglyceride: greater than or equal to 5OO mg/dL Cholesterol 172 <200 mg/dL [facility] Comment:Desirable Cholestero l: less than 200 mg/dLBorderline High Cholesterol: 200-239 mg/dLHigh Cholesterol: greater than 239 mg/dL LDL Cholesterol Calculated 99 <100 mg/dL [facility] Comment:Desirable LDL: less than 100 mg/dLNear Optimal/Above Optimal LDL: 110- 129 mg/dLBorderline High LDL: 130-159 mg/dLHigh LDL: 160-189 mg/dLVery High LDL: greater than or equal to 190 mg/dL HDL Cholesterol 46 >40 mg/dL [facility] Comment:Desirable HDL: great er than 40 mg/dL Note: This HDL assay may give artificially low results in patients with liver disease. Blood Venous blood specimen / Unknown 04/16/2024 10:44 AM EST 04/16/2024 2:33 PM EST us Jewel Purcell MD LAB BLOOD ORDERABL ES Final Result [facility] [address] [place] [phone] * Hepatitis C Antibody with Reflex to HCV, RNA, Quantitative, Real-Time PCR (06/28/2022 12:12 PM EDT) Hepatitis C Antibody NON-REACT LUCRECIA NON-REACT LUCRECIA [facility] [place] [employer] Index 0.11 <1.00 [facility] [place] [employer] Comment: HCV antibody was non-reactive. There is no laboratory evidence of HCV infection. In most cases, no further action is required. However, if recent HCV exposure is suspected, a test for HCV RNA (test code 75509) is suggested. For additional information please refer to http://education.Vaultus Mobile/faq/VNN83f7 (This link is being provided for informational/ educational purposes only.) Blood Venous blood specimen / Unknown 06/28/2022 12:12 PM EDT 06/28/2022 12:13 PM EDT Narrative [facility] - 06/29/2022 6:26 AM EDT FASTING:NO FASTING: NO us Jewel Purcell MD LAB BLOOD ORDERABL ES Final Result [facility] [address], [place] [phone] [facility] [place] [employer] [address] [place] [phone] * HIV 1/2 ANTIGEN/ANTIBODY,FOURTH GENERATION W/RFL (01/02/2021 9:50 AM EST) Pathologist [facility] HIV-1/2 ANTIGEN AND ANTIBODIES, 4TH GENERATION W/ REFLEX NON-REACT [facility]IA NON-REACT [facility] Comment: HIV-1 antigen and HIV-1/HIV-2 antibodies were not detected. There is no laboratory evidence of HIV infection. PLEASE NOTE: This information has been disclosed to you from records whose confidentiality may be protected by state law. If your state requires such protection, then the state law prohibits you from making any further disclosure of the information without the specific written consent of the person to whom it pertains, or as otherwise permitted by law. A general authorization for the release of medical or other information is NOT sufficient for this purpose. For additional information please refer to http://education.Taigen.Apparent/faq/YGY565 (This link is being provided for informational/ educational purposes only.) The performance of this assay has not been clinically validated in patients less than 2 years old. 01/02/2021 9:50 AM EST Shikha BEE LAB BLOOD ORDERABLES Annemarie l Result [facility] [address] * Hm Colonoscopy (07/04/2015 3:56 PM EDT) Historical Provider MD HEALTH MAINTENANCE Final Result from Last 3 Months or Most Recently Relevant to Health Maintenance Insurance [facility] MEDICAID STAND ADULT Care Teams Electronics Hardware Design Engineer Relationship Specialty Start Date End Date Jewel Loredo MD [address] [place] [phone] PCP - General Internal Medicine 07/13/19
--- OUTSIDE RECORDS SUMMARY | 2025-02-15 10:20 | XMS_ITS | Encounter Summary ---
Author Organization [employer] Address [address] [facility] 7t [place] [address] Care Team Providers Care Yarn Mercerizer Operator Helper Name Role Phone Jewel Loredo MD Primary Care Prov ider Encounter Details Date Type Department Care Team (Late st Contact Info) Description 05/30/2023 Orders Only [facility] [address] [place] [address] ProviderDenisha MD Social History Tobacco Use Types [...] Info) Description 03/10/2025 1:45 PM EST Telemedicine [facility] [address] [place] [address] Jewel Loredo MD [address] [place] [address] documented as of this encounter Procedures Procedure Name Priority Date/Time Associated Diagnosis Comments HM COLONOSCOPY Routine 07/04/2015 3:56 PM EDT documented in this encounter Results * Hm Colonoscopy (07/04/2015 3:56 PM EDT) Historical Provider HEALTH MAINTENANCE Final Result documented in this encounter Visit Diagnoses Not on filedocumented in this encounter Additional Health Concerns Assessment Noted Time PHQ-9 Depression Total Score: 0 05/18/19 23 9:56 AM EDT documented as of this encounter Care Teams Yarn Mercerizer Operator Helper Relationship Specialty Start Date End Date Jewel Loredo MD [address] [place] [address] PCP - General Internal Medicine 07/13/19 documented as of this encounter
--- OUTSIDE RECORDS SUMMARY | 2025-02-15 10:20 | XMS_ITS | Encounter Summary ---
Author Organization [employer] Address [address] [facility] [address] [place] [address] Care Team Providers Care Materials Scheduler Name Role Phone Jewel Loredo MD Primary Care Prov ider Encounter Details Date Type Department Care Team (Late st Contact Info) Description 05/11/2024 Telephone [facility] [address] [place] [address] Jewel Loredo MD [address] [place] [address] Social History Tobacco Use Types Packs/Day Years [...] Info) Description 03/10/2025 1:45 PM EST Telemedicine [facility] [address] [place] [address] Jewel Loredo MD [address] [place] [address] documented as of this encounter Visit Diagnoses Not on filedocumented in this encounter Additional Health Concerns Assessment Noted Time PHQ-9 Depression Total Score: 2 10/29/19 24 9:36 AM EDT documented as of this encounter Care Teams Materials Scheduler Relationship Specialty Start Date End Date Jewel Loredo MD [address] [place] [address] PCP - General Internal Medicine 07/13/19 documented as of this encounter
--- OUTSIDE RECORDS SUMMARY | 2025-02-15 10:20 | XMS_ITS | Encounter Summary ---
Author Organization [employer] Address [address] [facility] 7 [place] [address] Care Team Providers Care Steam Trap Worker Name Role Phone Jewel Loredo MD Primary Care Prov ider Reason for Visit * Reason Onset Date Comments Nurse Triage 08/07/2022 Encounter Details Date Type Department Care Team ([facility] st Contact Info) Description 08/07/2022 Telephone [facility] [address] [place], [place] [phone] Jewel Loredo MD [address] [place] [address] Nurse Triage Social History Tobacco Use Types [...] No answer LVM to return call to [facility] triage line. Protocol Used: No Contact [...] Info) Description 03/10/2025 1:45 PM EST Telemedicine [facility] [address] [place] [address] Jewel Loredo MD [address] [place] [address] documented as of this encounter Visit Diagnoses Not on filedocumented in this encounter Additional Health Concerns Assessment Noted Time PHQ-9 Depression Total Score: 0 05/18/19 23 9:56 AM EDT documented as of this encounter Care Teams Steam Trap Worker Relationship Specialty Start Date End Date Jewel Loredo MD [address] [place] [address] PCP - General Internal Medicine 07/13/19 documented as of this encounter
--- OUTSIDE RECORDS SUMMARY | 2025-02-15 10:20 | XMS_ITS | Patient Health Record ---
Author Organization [facility] Address [address] [place] [address] Care Team Providers Care Caregiver Assisted Living Name Role Phone [facility] Primary Care Provider Reason For Referral No Information Plan Of Treatment No Information Insurance Providers Payer Name Payer Address Payer Phone Subscriber Number Group Number Insured Name Patient Relationship to Insured Coverage Start Date Coverage End Date [facility] [id number] [place] [phone] [id number] Sue Wylie Self - patient is the insured 2
[2025-02-15 15:55] LABS: Albumin Level 4.0 g/dL (3.5-5.0); Alkaline Phosphatase 89 U/L (39-117); Anion Gap 11 (12-20); Aspartate Amino Transferase 42 U/L (5-31); Blood Urea Nitrogen 20 mg/dL (9-16); Calcium 10.0 mg/dL (8.4-10.2); Carbon Dioxide 28 mmol/L (22-29); Chloride 104 mmol/L (96-108); Cholesterol 166 mg/dL (<200); Estimated Glomerular Filt Rate > 60; HDL Cholesterol 36 mg/dL (>40); Potassium 3.1 mmol/L (3.3-5.1); Sodium 140 mmol/L (135-145); Total Protein 7.2 g/dL (6.5-8.0); Triglycerides 142 mg/dL (<150)
[2025-02-15 16:12] LABS: Alanine Aminotransferase 34 U/L (0-31)
== END 2025-02-15 08:36 ==
LOC: HO.CHCLDS 08:35
PROVIDERS: Visit Provider Internal Medicine
DX: I10 Essential (primary) hypertension (principal)
CPT/HCPCS: 36415; 80053; 80061